=== PATIENT | male | born 1955 | race Caucasian/White ===

== ENCOUNTER 2017-06-03 21:11 | Inpatient (IN) | payer MEDICARE ==
[2017-06-03] MEDS ORDERED: Furosemide 40 MG/4 ML VIAL ONE ×2 (21:32→21:36)
[2017-06-03] MEDS ORDERED: HYDROcodone/Acetaminophen 5/325 mg Tablet PO PRN (22:23)
[2017-06-03] MEDS ORDERED: Acetaminophen 325 MG TAB PO PRN (22:23)
--- NOTE | 2017-06-03 22:23 | PDOC.EVN ---
Event Note - Event Note Event Note: [id number] h&p dictated 1. Acute hypoxic respiratory failure 2. ESRD 3. HTN 4. AOCD Plan: see orders
[2017-06-03] MEDS ORDERED: HumaLOG 300 UNITS/3 ML VIAL SC PRN ×2 (22:26)
[2017-06-03] MEDS ORDERED: Dextrose 50% Abboject 50 ML SYRINGE SLOW IVP PRN (22:26)
[2017-06-03] MEDS ORDERED: Dextrose 5% in Water 1,000 ML IV PRN (22:26)
[2017-06-04] MEDS ORDERED: niCARdipine HCl 25 MG in Sodium Chloride 0.9% 250 ML 240 ML IVPB PRN (00:40)
[2017-06-04] MEDS ORDERED: [UNRECOGNIZED DRUG - OTHER] SSW PRN ×3 (00:44)
[2017-06-04] MEDS ORDERED: ALUMINUM SSW PRN ×6 (00:44→01:16)
[2017-06-04] MEDS ORDERED: LIDOCAINE SSW PRN ×6 (00:44→01:16)
[2017-06-04] MEDS ORDERED: MAGNESIUM HYDROXIDE SSW PRN ×6 (00:44→01:16)
[2017-06-04] MEDS ORDERED: VISCOUS SSW PRN ×6 (00:44→01:16)
[2017-06-04] MEDS ORDERED: [UNRECOGNIZED DRUG - OTHER] SSW PRN ×3 (01:16)
[2017-06-04 06:03] LABS: Anion Gap 12 mmol/L (10-20); BUN (Urea Nitrogen) 14 mg/dL (8.4-25.7); BUN/Creatinine Ratio 4.64; Calc. Creatinine Clearance 0 mL/min (70-130); Calcium 8.7 mg/dL (7.8-10.44); Carbon Dioxide 31 mmol/L (23-31); Chloride 98 mmol/L (98-107); Estimated GFR-MDRD 21
[2017-06-04 06:09] LABS: Phosphorus 1.9 mg/dL (2.3-4.7)
[2017-06-04 06:27] LABS: Anisocytosis SLIGHT = 6-15 cells (100X) (0-5/hpf); Macrocytosis SLIGHT = 6-15 cells (100X) (0-5/hpf); Mean Platelet Volume 8.4 fL (7.4-10.4); Neutrophil 53 % (42-75); Polychromasia SLIGHT = 2-3 cells (100X) (0-2/hpf); White Blood Cell (WBC) Count 2.8 thou/uL (4.8-10.8)
[2017-06-04] MEDS ORDERED: [UNRECOGNIZED DRUG - OTHER] SSW SCH ×3 (07:30)
[2017-06-04] MEDS ORDERED: LIDOCAINE SSW SCH ×3 (07:30)
[2017-06-04] MEDS ORDERED: MAGNESIUM HYDROXIDE SSW SCH ×3 (07:30)
[2017-06-04] MEDS ORDERED: ALUMINUM SSW SCH ×3 (07:30)
[2017-06-04] MEDS ORDERED: VISCOUS SSW SCH ×3 (07:30)
[2017-06-04] MEDS ORDERED: Sevelamer Carbonate 800 MG TAB PO SCH (08:00)
--- NOTE | 2017-06-04 08:09 | HP ---
DATE OF ADMISSION: 06/03/2017 CHIEF COMPLAINT: Difficulty breathing. HISTORY OF PRESENT ILLNESS: Patient is a 62-year-old male with past medical history of ESRD; hypert ension; diabetes mellitus, type 2; anemia of chronic disease, now came to the ER because of the flui d overload. Patient said he did had dialysis done today. Patient finished dialysis earlier this mo rning. Patient says that he started having dyspnea this evening, dyspnea got worse, so patient went to outside ER, in the outside ER, patient was diagnosed having fluid overload, so patient was place d on BiPAP and transferred here. The patient denies any chest pain. Denies any palpitations. Comp lains of chest congestion. Denies any fever, denies any chills. PAST MEDICAL HISTORY: As per HPI. PAST SURGICAL HISTORY: AV fistula placement and recent tonsillar biopsy done. SOCIAL HISTORY: Denies smoking, denies alcohol, denies any drugs. REVIEW OF SYSTEMS: Constitutional: Denies any fever, denies any chills. Eyes: No vision problems . Ears: Denies any hearing loss. Neck: Denies any neck pain. Cardiovascular System: Denies any chest pain. Respiratory System: Positive for dyspnea. Cranial Nerve System: Denies syncope. De nies lightheadedness. Genitourinary: Positive for dialysis. Integumentary: Denies any rash. All other review of systems are reviewed and are negative. PHYSICAL EXAMINATION: CONSTITUTIONAL/VITAL SIGNS: At the time of H and P performed, blood pressure is 167/78, pulse oxime try 97%, heart rate 72. GENERAL APPEARANCE: The patient appears tired. Anterior nares patent. Nose normal. Ears normal. Teeth intact. Tongue is moist. NECK: Supple. No JVD. CARDIOVASCULAR SYSTEM: S1 and S2 present. Regular rate and rhythm. No murmurs, no rubs, no gallop s. RESPIRATORY SYSTEM: Positive for crackles. No wheezing, no rhonchi, on BiPAP, mild tachypnea. GASTROINTESTINAL SYSTEM: Abdomen is soft, nontender, no guarding, no organomegaly, no masses felt. CRANIAL NERVE SYSTEM: Awake, follows commands, strength intact, sensory intact. PSYCHIATRIC: Mood is appropriate at this time. INTEGUMENTARY: No rashes seen. MUSCULOSKELETAL: Positive for AV fistula. LABORATORY DATA: Labs at the time of H and P performed, sodium 136, potassium 4.5, chloride is 99, CO2 of 25, BUN of 27, creatinine of 4.57, CK-MB is 1.1, troponin is 0.075, BNP 12,570. CBC showed w teri count 4.6, hemoglobin 9.2, platelet count is 195. ASSESSMENT AND PLAN: The patient is 62-year-old male. 1. Acute hypoxic respiratory failure. Continue BiPAP. We will monitor respiratory status closely. Plan to admit the patient to ICU. ED physician spoke to the gas derrick operator. We will monitor the p atient closely. 2. Acute fluid overload plus end-stage renal disease. Plan ED physician to notify the special machine stitcher . We will go ahead and do dialysis tonight and we will monitor respiratory status closely. 3. History of hypertension, uncontrolled, continue on nitro drip, we will wean nitro drip slowly. 4. Anemia of chronic disease. Monitor hemoglobin per Nephrology. 5. Diabetes mellitus, type 2. Monitor blood sugars. We will do insulin sliding scale. The case was discussed in detail with the patient.
[2017-06-04 08:44] VITALS: BP 150/63
[2017-06-04] MEDS ORDERED: Carvedilol 25 MG TAB PO SCH (09:00)
[2017-06-04] MEDS ORDERED: Famotidine 20 MG TAB PO SCH ×2 (09:00)
[2017-06-04] MEDS ORDERED: Aspirin 325 MG TAB PO SCH (09:00)
[2017-06-04] MEDS ORDERED: Apixaban 5 MG TAB PO SCH (09:00)
[2017-06-04] MEDS ORDERED: Heparin 5,000 UNITS/ML VIAL SC SCH (09:00)
--- NOTE | 2017-06-04 10:58 | CON ---
DATE OF CONSULTATION: 06/03/2017 REASON FOR CONSULTATION: Pulmonary edema. HISTORY OF PRESENT ILLNESS: A 62-year-old gentleman who after dialysis complaining of shortness of breath and presented to the hospital. Chest x-ray showed cardiomegaly. The patient complains of dyspnea with minimal exertion and chest heaviness. The patient denies headache, numbness, tingling or weakness. PAST MEDICAL HISTORY: Significant for hypertension, anemia, end-stage renal disease, history of AV fistula placement. SOCIAL ECONOMIC HISTORY: No alcohol or drug use. ALLERGIES: Reviewed. REVIEW OF SYSTEMS: Fifteen point review of systems was performed and negative except positives noted above. GENERAL: Weakness-. HEAD: Headache-. NECK: No swelling or lumps. NOSE: No epistaxis or discharge. EYES: No diplopia or pain. RESPIRATORY: Dyspnea-. CARDIOVASCULAR: Chest pain-. GASTROINTESTINAL: Nausea-. /BIAS BINDING FOLDER: Hematuria-. MUSCULOSKELETAL: No joint pain. NEUROPSYCHIATIC SYSTEMS: No suicidal ideation. No ideation. SKIN: Denies any rash or ulcer. CONSTITUTIONAL: No fever or chills. FAMILY HISTORY: Negative for ESRD. ALLERGIES: Reviewed. HOME MEDICATIONS: List reviewed. PHYSICAL EXAMINATION: GENERAL: Patient was awake, alert. VITAL SIGNS: Afebrile, pulse 75, breathing at 16, blood pressure 160/78. HEAD/NECK: Normocephalic, atraumatic. EYES: EOMI. No deformity. EARS: Clear. No ulcers. NOSE: Intact. No lesions. MOUTH: Clear. No discharge. THROAT: Clear. No exudate. LUNGS: Clear. No crackles. CARDIAC: S1, S2. No rub. ABDOMEN: Benign. BS+. GENITALIA/RECTUM: Chappell absent. BACK/EXTREMITIES: Edema 0+ Ulcer-. NEUROLOGICAL: Alert and motor intact. SKIN: Rash- Bruise-. LYMPHATICS: Edema- Ulcer-. LABORATORY DATA: Show potassium is less than 4. Hemoglobin 8.2. X-RAY FINDINGS: Chest x-ray shows pulmonary edema. ASSESSMENT AND RECOMMENDATIONS: 1. End-stage renal disease. Dialysis will be planned with a 3K bath, ultrafiltrate 2:3 Kg. 2. Hypertension, stable. 3. Medications based on GFR are appropriate. 4. Anemia. We will continue Epogen. I would recommend 2000 mL fluid restriction per day. MTDD
--- NOTE | 2017-06-04 11:22 | PRG ---
DATE OF SERVICE: 06/04/2017 SUBJECTIVE: This 62-year-old gentleman being seen for end-stage renal disease. Patient denies any nausea, vomiting or chest pain. The patient tolerated dialysis well. PHYSICAL EXAMINATION: GENERAL: Patient is awake, alert. VITAL SIGNS: Afebrile, pulse 82, breathing at 16, blood pressure 120/80. GENERAL APPEARANCE AND MENTAL STATUS: Fair. HEAD/NECK: Normocephalic. Atraumatic. EYES: EOMI. No deformity. EARS: Clear. No ulcers. NOSE: Intact. No lesions. MOUTH: Clear. No discharge. THROAT: Clear. No exudate. LUNGS: Clear. No crackles. CARDIAC: S1, S2. No rub. ABDOMEN: Benign. BS+. GENITALIA/RECTUM: Chappell absent. BACK/EXTREMITIES: Edema 0+ Ulcer- NEUROLOGICAL: Alert and motor intact. SKIN: Rash- Bruise- LYMPHATICS: Edema- Ulcer- LABORATORY DATA: Show hemoglobin 8.2. ASSESSMENT AND RECOMMENDATIONS: 1. Stage 6 chronic kidney disease. Continue hemodialysis. 2. Hypertension, stable. 3. Anemia, stable. 4. Congestive heart failure, stable.
[2017-06-04 13:05] VITALS: TEMP 98.5
--- NOTE | 2017-06-04 13:59 | DIS ---
DATE OF ADMISSION: 06/03/2017 DATE OF DISCHARGE: 06/04/2017 CONSULTANTS: The patient's consultants on the case where ware finisher and Dr. Rocha. DISCHARGE MEDICATIONS: The patient's discharge medications are the same as admit medications. DISCHARGE DIAGNOSES: 1. Shortness of breath, acute respiratory failure secondary to volume overload, resolved with dialy sis. 2. End-stage renal disease, on hemodialysis. 3. Hypertension, stable. 4. Anemia of chronic disease. Continue Epogen. 5. Diabetes mellitus, stable. BRIEF HOSPITAL COURSE: This is a 62-year-old pleasant gentleman who was apparently in the usual sta te of health, came into the hospital because of difficulty breathing. Please refer to the admitting physician's H and P for further details. The patient was dialyzed this hospital stay, he did much better. He was initially treated with BiPAP; however, admitted to the ICU because of the respirator y failure, but after the dialysis, he felt much better right now, is eating well, breathing on room air, satting well at the time of my examination. PHYSICAL EXAMINATION: VITAL SIGNS: His blood pressure was 150/63, breathing comfortably on room air, pulse of 78 and afeb rile. GENERAL: The patient was lying in bed, in no apparent distress. HEENT: Atraumatic and normocephalic. Pupils equal, round, react to light. Extraocular movements a re intact. Mucous membranes are moist. NECK: Supple. No JVD. CHEST: Breath sounds. There are no rales or rhonchi. HEART: S1, S2. No murmurs or gallops. ABDOMEN: Soft. EXTREMITIES: No cyanosis, clubbing, or edema. Distal pulses present. NEUROLOGIC: Alert, awake, oriented. No cranial deficits. No sensorimotor deficits. The patient right now is medically stable to be discharged from the ware finisher point of view and Dr Marilu Rocha's point of view. He is asked to follow up with Dr. Rocha for hemodialysis and PCP in 1 week. He understands all this. He is asked to come back to the emergency room in case symptoms recur. Total time for this discharge took 35 minutes.
--- NOTE | 2017-06-04 18:42 | CON ---
DATE OF CONSULTATION: 06/04/2017 Mr. Little is a 62-year-old male with end-stage renal disease. He also has head and neck cancer. Zelalem whitmore tells me that his dry weight has not been adjusted down with his weight loss associated with this malignancy and his odynophagia. He is dialyzed to his dry weight, but when he got home, noticed mirella t he was short of breath. He presented with volume overload and required noninvasive ventilation mo st of the night. He was evaluated by me earlier this morning. He is off noninvasive ventilation an d I completed dialysis, said he was 100% better. He is on room air. He has been cleared by Nephrology for discharge, and I evaluated him and to be followed in a dialysi s clinic. PAST MEDICAL HISTORY: 1. Remarkable for anemia of chronic disease. 2. Hypertension. 3. History of vascular access procedures. SOCIAL HISTORY: He is a nonsmoker, nondrinker. ALLERGY: To CODEINE. FAMILY HISTORY: Negative for lung disease at an early age. REVIEW OF SYSTEMS: Otherwise unremarkable. PHYSICAL EXAMINATION: VITAL SIGNS: Heart rate 69, respiratory rate is in the 20s. Blood pressure 150/72 this afternoon. LUNGS: Clear. HEART: Regular rhythm. ABDOMEN: Soft and nontender. EXTREMITIES: Without asymmetry. LABORATORY DATA: White count this morning was 2.8, hemoglobin 8.2, platelets 146. Electrolytes are normal. Creatinine was 3.0. IMPRESSION: 1. End-stage renal disease. 2. Throat cancer. 3. Deconditioning. 4. Volume overload, resolved with dialysis. I would agree with discharge home since he is seen kandice quently in the dialysis clinic.
[2017-06-04] MEDS ORDERED: Atorvastatin Calcium 20 MG TAB PO SCH (21:00)
[2017-06-04] MEDS ORDERED: NIFEdipine XL 30 MG TAB PO SCH (21:00)
== END 2017-06-04 15:24 | disposition home or self-care (01) | DRG 189 ==
LOC: ERS 21:11 → CCU 22:58
PROVIDERS: ADMIT Internal Medicine; ATTEND Internal Medicine
PROC: 5A09357 Assistance with Respiratory Ventilation, Less than 24 Consecutive Hours, Continuous Positive Airway Pressure (ICD-10-PCS; principal; 2017-06-03)
PROC: 5A1D70Z Performance of Urinary Filtration, Intermittent, Less than 6 Hours Per Day (ICD-10-PCS; 2017-06-04)
DX: J96.01 Acute respiratory failure with hypoxia (principal); I13.2 Hypertensive heart and chronic kidney disease with heart failure and with stage 5 chronic kidney disease, or end stage renal disease; N18.6 End stage renal disease; C14.0 Malignant neoplasm of pharynx, unspecified; E87.70 Fluid overload, unspecified; C76.0 Malignant neoplasm of head, face and neck; D63.8 Anemia in other chronic diseases classified elsewhere; E11.9 Type 2 diabetes mellitus without complications; I50.9 Heart failure, unspecified; Z99.2 Dependence on renal dialysis
CPT/HCPCS: 36415; 36416; 77386; 77417; 80053; 80069; 82248; 83615; 83735; 84100; 84550; 85007; 85025; 85027; 87340; 90935; 94660; 94760; 96365; 96366; 96375; A4216; G0257; J1644; J1940; J7050

== ENCOUNTER 2017-06-09 08:55 | Day surgery (SDC) | payer MEDICARE ==
[2017-06-09] MEDS ORDERED: Sodium Chloride 0.9% 20 ML ONE (09:48)
[2017-06-09] MEDS ORDERED: diphenhydrAMINE HCl 25 MG CAP PO SCH (10:00)
[2017-06-09] MEDS ORDERED: Acetaminophen 500 MG TAB PO SCH (10:00)
[2017-06-09 15:14] VITALS: BP 165/77; TEMP 98.2
[2017-06-09 15:27] LABS: Hematocrit 31.9 % (42.0-52.0); Mean Platelet Volume 7.6 fL (7.4-10.4); Red Blood Cell (RBC) Count 3.45 mill/uL (4.70-6.10); White Blood Cell (WBC) Count 4.5 thou/uL (4.8-10.8)
[2017-06-09 15:51] LABS: Anisocytosis SLIGHT = 6-15 cells (100X) (0-5/hpf); Band 4 % (5-11); Neutrophil 76 % (42-75)
== END 2017-06-09 15:14 | disposition home or self-care (01) ==
LOC: ONC/OP 08:55
PROVIDERS: ATTEND Internal Medicine Hematology & Oncology
PROC: 30233N1 Transfusion of Nonautologous Red Blood Cells into Peripheral Vein, Percutaneous Approach (ICD-10-PCS; principal; 2017-06-09)
DX: D64.9 Anemia, unspecified (principal); D69.59 Other secondary thrombocytopenia; E11.22 Type 2 diabetes mellitus with diabetic chronic kidney disease; I12.0 Hypertensive chronic kidney disease with stage 5 chronic kidney disease or end stage renal disease; N18.6 End stage renal disease; F17.200 Nicotine dependence, unspecified, uncomplicated; F12.90 Cannabis use, unspecified, uncomplicated; Z99.2 Dependence on renal dialysis; Z79.84 Long term (current) use of oral hypoglycemic drugs; Z79.01 Long term (current) use of anticoagulants; Z79.899 Other long term (current) drug therapy; Z88.5 Allergy status to narcotic agent; Z98.890 Other specified postprocedural states
CPT/HCPCS: 36415; 36430; 85025; 86850; 86900; 86901; A4216; P9016

== ENCOUNTER 2017-07-22 19:39 | Observation (INO) | payer MEDICARE ==
[2017-07-22] MEDS ORDERED: Nitroglycerin 2% Ointment 1 INCH/1 GM Packet ONE (19:53)
[2017-07-22 21:37] LABS: Troponin I 0.802 ng/mL (< 0.028)
[2017-07-22] MEDS ORDERED: Ondansetron HCl/PF 4 MG/2 ML Vial IVP PRN (22:46)
[2017-07-22] MEDS ORDERED: Ondansetron ODT 4 MG TAB SL PRN (22:46)
[2017-07-22 23:02] VITALS: BMI 17.9
[2017-07-22] MEDS ORDERED: Nitroglycerin 0.4 MG TAB (25 Tab Bottle) SL PRN (23:40)
[2017-07-22] MEDS ORDERED: Bisacodyl 5 MG TAB PO PRN (23:40)
[2017-07-22] MEDS ORDERED: Acetaminophen 325 MG TAB PO PRN (23:40)
[2017-07-22] MEDS ORDERED: Dextrose 50% Abboject 50 ML SYRINGE SLOW IVP PRN (23:58)
[2017-07-22] MEDS ORDERED: HumaLOG 300 UNITS/3 ML VIAL SC PRN (23:58)
[2017-07-22] MEDS ORDERED: Dextrose 5% in Water 1,000 ML IV PRN (23:58)
[2017-07-22 23:59] LABS: Troponin I 0.998 ng/mL (< 0.028)
--- NOTE | 2017-07-23 01:32 | HP ---
PRIMARY CARE PHYSICIAN: Johana Rahman D.O. CHIEF COMPLAINT: Shortness of breath. HISTORY OF PRESENT ILLNESS: Mr. Little is a pleasant 62-year-old gentleman who was seen at [facility] on 07/22/2017. He was hospitalized at this facility early June. During that hospitalization, he had cardiac catheterization and received a bare metal stent to the LAD. He reports that over the last few weeks, he has been having shortness of breath. He reports having a "funny sensation all over the body." He reportedly told the emergency room physician that he had ch est pressure at times. He denies chest pressures when asked about it. He also reports feeling anxio us. He reports that he used his mother's oxygen and the shortness of breath improved. He had dialys is today morning, but reports that the shortness of breath is not related to his dialysis. REVIEW OF SYSTEMS: The following complete review of systems was negative, unless otherwise mentioned in the HPI or below: Constitutional: Weight loss or gain, sense of well-being, ability to conduct usual activities, exerc ise tolerance. Skin/Breast: Rash, itching, changes in hair growth or loss, nail changes, breast lum ps, tenderness, swelling, nipple discharge. Eyes: Vision, double vision, tearing, blind spots, pain . ENT/Mouth: Headaches (location, time of onset, duration, precipitating factors), vertigo, lighthe adedness, injury. Vision, double vision, tearing, blind spots, pain, nose bleeding, colds, obstructio n, discharge, dental difficulties, gingival bleeding, dentures, neck stiffness, pain, tenderness, mas ses in thyroid or other areas. Cardiovascular: Precordial pain, substernal distress, palpitations, syncope, dyspnea on exertion, orthopnea, nocturnal paroxysmal dyspnea, edema, cyanosis, hypertension, heart murmurs, varicosities, phlebitis, claudication. Respiratory: Pain, shortness of breath, whee zing, stridor, cough, hemoptysis, fever or night sweats. Gastrointestinal: Poor appetite, dysphagia , indigestion, abdominal pain, heartburn, eructation, nausea, vomiting, hematemesis, jaundice, consti pation, or diarrhea, abnormal stools (antonio-colored, tarry, bloody, greasy, foul smelling), flatulence , hemorrhoids, recent changes in bowel habits. Genitourinary: Urgency, frequency, dysuria, nocturia , hematuria, polyuria, oliguria, unusual (or change in) color of urine, stones, hesitancy, change in size of stream, dribbling, acute retention or incontinence, libido, potency. Musculoskeletal: Pain, swelling, redness or heat of muscles or joints, limitation, of motion, muscular weakness, atrophy, c ramps. Neurologic/Psychiatric: Convulsions, paralyses, tremor, incoordination, parasthesias, diffic ulties with memory of speech, sensory or motor disturbances, or muscular coordination (ataxia, tremor ), emotional problems, anxiety, depression, previous psychiatric care, unusual perceptions, hallucina tions. Allergy/Immunologic: Skin rash, anemia, bleeding tendency, polydipsia, polyuria, intolerance to heat or cold. PAST MEDICAL HISTORY: Significant for end-stage renal disease on hemodialysis, hypertension, dyslipi demia, diabetes mellitus type 2, chronic hepatitis C, history of marijuana use, chronic systolic hear t failure, coronary artery disease, status post PCI with stents; head and neck cancer, on chemotherap y and radiation therapy; chronic anemia, secondary hyperparathyroidism, and cerebrovascular accident. PAST SURGICAL HISTORY: Significant for a left finger reattachment after injury, right shoulder surge ry and dialysis access fistula to left forearm. PAST PSYCHIATRIC HISTORY: Significant for anxiety and depression. SOCIAL HISTORY: The patient reports that he quit smoking 3 months ago. He reports occasional mariju nishant use. He denies alcohol use. FAMILY HISTORY: Significant for diabetes mellitus and hypertension. ALLERGIES: CODEINE. CURRENT MEDICATIONS: Include apixaban 5 mg 2 times a day, aspirin 81 mg daily, Lipitor 80 mg at bedt bob, Coreg 12.5 mg 2 times a day, Plavix 75 mg daily, glipizide 5 mg daily, [place] p.r.n., losartan 25 mg daily, Renvela 2400 mg 3 times a day. PHYSICAL EXAMINATION: GENERAL: Mr. Little is awake and alert, not in acute distress. VITAL SIGNS: Blood pressure is 172/84, pulse is 77. His breathing at rate of 18, and saturating 97% on room air. He is afebrile. EYES: No scleral icterus. No conjunctival pallor. ENT: Moist mucosal membranes, no oropharyngeal erythema or exudates. NECK: Supple, nontender, normal range of movement, trachea is midline. RESPIRATORY: Accessory muscles of breathing are not active. Chest wall movements are symmetric bila terally. LUNGS: Clear to auscultation without wheeze, rhonchi or crepitations. CARDIOVASCULAR: S1 and S2 are heard, regular. LUNGS: Peripheral pulses palpable. No carotid bruit, no pericardial rub. ABDOMEN: Soft, nontender, bowel sounds heard, no hepatomegaly, no splenomegaly. NEUROLOGIC: Cranial nerves II-XII are intact. Deep tendon reflexes are 2+. MUSCULOSKELETAL: Power is 5/5 in all 4 extremities. Normal range of movement at all major extremity joints. SKIN: No rashes or subcutaneous nodules. PSYCHIATRIC: Normal mood, normal affect, patient is oriented to person, place, and time. LABORATORY DATA: Mr. Little's labs and investigations were reviewed. I reviewed his electrocardiogr am, which shows normal sinus rhythm, no ST changes to suggest an acute coronary syndrome. I also rev iewed his chest x-ray, which does not show any pulmonary infiltrates. Laboratory investigations show decreased white count of 4400, normocytic anemia with hemoglobin of 9.5, last known hemoglobin 11.1 on 07/06/2017, normal platelet count. INR 1.3, normal sodium, normal potassium, elevated creatinine of 4.91, elevated troponin I of 1.192, troponin was 7.514 on July 03, 2017, normal AST, normal ALT , normal alkaline phosphatase, normal total bilirubin. ASSESSMENT AND PLAN: Mr. Little is a pleasant 62-year-old gentleman who was seen at [facility] on 07/22/2017. His problem list includes: 1. Shortness of breath: Etiology unclear. Could be related to atypical presentation of acute coron nahum syndrome. I will admit patient for traffic monitor specialist and repeat cardiac enzymes. We will consul t Cardiology Service for their opinion. Clinically, he does not appear to be in heart failure. I wi ll check his BNP level. We will continue his home medications, but hold off on Eliquis at this time in case he needs to go for cardiac catheterization or other procedures. 2. End-stage renal disease on dialysis. Consult Nephrology for maintenance hemodialysis. 3. Anemia: His hemoglobin dropped from 11.1 on July 06 to 9.5 today. However, his baseline hemo globin appears to be lower in May. He denies any bleeding. We will repeat hemoglobin check. 4. Hypertension: Continue home medications, monitor vital signs and titrate antihypertensives as ne eded. 5. Dyslipidemia: Continue statin. 6. Diabetes mellitus type 2. Resume home medications, start insulin sliding scale and Accu-Cheks. Many thanks for allowing me to participate in your patient's care. Please feel free to contact me wi th any questions or concerns. LEVEL OF RISK: High. LEVEL OF COMPLEXITY: High.
[2017-07-23] MEDS ORDERED: Nitroglycerin 2% Ointment 1 INCH/1 GM Packet TOP SCH (06:00)
[2017-07-23 06:04] LABS: Anion Gap 16 mmol/L (10-20); BUN (Urea Nitrogen) 48 mg/dL (8.4-25.7); Calc. Creatinine Clearance 11 mL/min (70-130); Calcium 8.9 mg/dL (7.8-10.44); Carbon Dioxide 21 mmol/L (23-31); Chloride 103 mmol/L (98-107); Estimated GFR-MDRD 10
[2017-07-23 06:16] LABS: Anisocytosis MODERATE=16-30 cells (100X) (0-5/hpf); Hematocrit 30.6 % (42.0-52.0); Mean Platelet Volume 7.9 fL (7.4-10.4); Neutrophil 51 % (42-75); Red Blood Cell (RBC) Count 3.33 mill/uL (4.70-6.10); White Blood Cell (WBC) Count 3.8 thou/uL (4.8-10.8)
[2017-07-23] MEDS: Losartan Potassium 25 MG TAB PO SCH (07:54)
[2017-07-23] MEDS: Carvedilol 6.25 MG TAB PO SCH ×2 (07:54→17:36)
[2017-07-23] MEDS: glipiZIDE 5 MG TAB PO SCH (07:55)
[2017-07-23] MEDS: Sevelamer Carbonate 800 MG TAB PO SCH ×3 (07:55→17:37)
[2017-07-23] MEDS ORDERED: Clopidogrel Bisulfate 75 MG TAB PO SCH (09:00)
[2017-07-23] MEDS ORDERED: Aspirin 325 MG TAB PO SCH (09:00)
[2017-07-23] MEDS ORDERED: Non-Formulary Item 1 EACH (Clopidogrel Bisulfate [Clopidogrel] 75 MG) PO SCH (09:00)
--- NOTE | 2017-07-23 09:38 | PDOC.PN ---
- Subjective Encounter Start Date: 07/23/17 Encounter Start Time: 09:36 Subjective: c/o several anxiety episodes.no chest pain. gets SOb for few seconds -: no orthopnea/PND/leg edema - Objective Resuscitation Status: Resuscitation Status FULL:Full Resuscitation Vital Signs & Weight: Vital Signs (12 hours) Temp Pulse Resp BP BP BP Pulse Ox 07/23/17 07:33 98.4 F 85 14 140/81 94 L 07/23/17 05:06 98.5 F 83 16 179/93 H 97 07/23/17 01:13 81 158/79 H 07/22/17 23:40 97 07/22/17 22:39 98.1 F 77 18 172/84 H 97 Weight Weight 125 lb 4.8 oz I&O: 07/22/17 07/23/17 07/24/17 06:59 06:59 06:59 Intake Total 480 Balance 480 Result Diagrams: 07/23/17 05:09 07/23/17 05:09 Additional Labs: Accuchecks 07/23/17 07/23/17 07/23/17 05:51 05:06 01:12 POC Glucose 127 H 55 L* 161 H Laboratory Tests 07/03/17 07/03/17 07/03/17 06:32 08:18 11:17 Troponin I 6.292 H* B-Natriuretic Peptide 59151.6 H Greater than 4900.0 H 07/03/17 07/22/17 07/22/17 14:05 17:55 20:34 Troponin I 7.514 H* 1.192 H* 0.802 H* B-Natriuretic Peptide 07/22/17 07/22/17 20:34 23:18 Troponin I 0.998 H* B-Natriuretic Peptide 3890.9 H Radiology Reviewed by me: Yes (CXR- no edema) Phys Exam - Physical Examination Constitutional: NAD anxious looking.cachectic HEENT: PERRLA, moist MMs, sclera anicteric, oral pharynx no lesions Neck: no nodes, no JVD, supple, full ROM Respiratory: no wheezing, no rales, no rhonchi, clear to auscultation bilateral Cardiovascular: RRR, no significant murmur Gastrointestinal: soft, non-tender, no distention, positive bowel sounds Musculoskeletal: no edema, pulses present Neurological: non-focal, normal sensation, moves all 4 limbs Psychiatric: normal affect, A&O x 3 Skin: no rash Dx/Plan (1) Dyspnea Code(s): R06.00 - DYSPNEA, UNSPECIFIED Status: Acute Comment: Likley anxiety (2) Hepatitis C Code(s): B19.20 - UNSPECIFIED VIRAL HEPATITIS C WITHOUT HEPATIC COMA Status: Chronic (3) Severe protein-calorie malnutrition Code(s): E43 - UNSPECIFIED SEVERE PROTEIN-CALORIE MALNUTRITION Status: Chronic (4) Anemia of renal disease Code(s): D63.1 - ANEMIA IN CHRONIC KIDNEY DISEASE Status: Chronic (5) CAD (coronary artery disease) Code(s): I25.10 - ATHSCL HEART DISEASE OF [place] CORONARY ARTERY W/O ANG PCTRS Status: Chronic Qualifiers: (6) Chronic anticoagulation Code(s): Z79.01 - MECHANICAL MAINTENANCE SUPERVISOR (CURRENT) USE OF ANTICOAGULANTS Status: Chronic Comment: goran on hold for now (7) Diabetes type 2, controlled Code(s): E11.9 - TYPE 2 DIABETES MELLITUS WITHOUT COMPLICATIONS Status: Chronic Qualifiers: (8) ESRD (end stage renal disease) on dialysis Code(s): N18.6 - END STAGE RENAL DISEASE; Z99.2 - DEPENDENCE ON RENAL DIALYSIS Status: Chronic (9) HTN (hypertension) Code(s): I10 - ESSENTIAL (PRIMARY) HYPERTENSION Status: Chronic Qualifiers: (10) Secondary hyperparathyroidism of renal origin Code(s): N25.81 - SECONDARY HYPERPARATHYROIDISM OF RENAL ORIGIN Status: Chronic (11) Throat cancer Code(s): C14.0 - MALIGNANT NEOPLASM OF PHARYNX, UNSPECIFIED Status: Chronic Comment: s/p ChemoRx and XRT - Plan PT/OT, respiratory therapy, incentive spirometry, out of bed/ambulate, DVT proph w/SCDs Dyspnea likley anxiety attack.pt reports that he has no meds for same -: less likley to be cardiac. Tropoinin still trending down from 2 weeks ago -: appears euvolemic.cardiology recs requested.cont meds -: HD per nephrology. -: Add Ensure Enlive. * .Pt will be referred to GI an an OP for Chronic hep C. * pen xanax .pt advised about the possibilty of toxicity given h/o hepatitis. * Cont OP f/u w Oncology for Head/Neck CA. is s/p chemo/radiation * am labs, if still here Review of Systems - Review of Systems Constitutional: negative: Fever, Chills, Sweats, Weakness, Malaise, Other ENT: negative: Ear Pain, Ear Discharge, Nose Pain, Nose Discharge, Nose Congestion, Mouth Pain, Mouth Swelling, Throat Pain, Throat Swelling, Other Respiratory: negative: Cough, Dry, Shortness of Breath, Hemoptysis, SOB with Excertion, Pleuritic Pain, Sputum, Wheezing Cardiovascular: negative: Chest Pain, Palpitations, Orthopnea, Paroxysmal Noc. Dyspnea, Edema, Light Headedness, Other Gastrointestinal: negative: Nausea, Vomiting, Abdominal Pain, Diarrhea, Constipation, Melena, Hematochezia, Other Genitourinary: negative: Dysuria, Frequency, Incontinence, Hematuria, Retention , Other Musculoskeletal: negative: Neck Pain, Shoulder Pain, Arm Pain, Back Pain, Hand Pain, Leg Pain, Foot Pain, Other Neurological: negative: Weakness, Numbness, Incoordination, Change in Speech, Confusion, Seizures, Other Other: anxiety - Medications/Allergies Allergies/Adverse Reactions: Allergies Allergy/AdvReac Type Severity Reaction Status Date / Time codeine Allergy Intermediate MADE PT Verified 06/04/17 00:01 VERY SICK TO STOMACH, NAUSEA Medications: Current Medications Acetaminophen (Tylenol) 650 mg PO Q4H PRN PRN Reason: Headache/Fever or Pain Aspirin (Aspirin Chewable) 81 mg PO DAILY [facility] Last Admin: 07/23/17 07:55 Dose: 81 mg Atorvastatin Calcium (Lipitor) 80 mg PO [facility] Bisacodyl (Dulcolax) 10 mg PO DAILYPRN PRN PRN Reason: Constipation Carvedilol (Coreg) 12.5 mg PO BID-[facility] Last Admin: 07/23/17 07:54 Dose: 12.5 mg Clopidogrel Bisulfate (Plavix) 75 mg PO DAILY [facility] Last Admin: 07/23/17 07:54 Dose: 75 mg Dextrose/Water (Dextrose 50%) 25 gm SLOW IVP PRN PRN PRN Reason: Hypoglycemia Glipizide (Glucotrol) 5 mg PO QAM-[facility] Last Admin: 07/23/17 07:55 Dose: 5 mg Glucagon (Glucagon) 1 mg IM PRN PRN PRN Reason: Hypoglycemia Dextrose/Water (D5w) 1,000 mls @ 0 mls/hr IV .Q0M PRN; As Directed PRN Reason: Hypoglycemia Insulin Human Lispro (Humalog) 0 units SC .MILD SLIDING SCALE PRN PRN Reason: Mild Correctional Scale Losartan Potassium (Cozaar) 25 mg PO DAILY [facility] Last Admin: 07/23/17 07:54 Dose: 25 mg Nitroglycerin (Nitro-Bid 2% Ointment) 1 inch TOP Q8HR [place] Stop: 07/23/17 10:00 Last Admin: 07/23/17 05:03 Dose: 1 inch Nitroglycerin (Nitrostat) 0.4 mg SL Q5MIN PRN PRN Reason: Chest Pain Ondansetron HCl (Zofran) 4 mg IVP Q6H PRN PRN Reason: Nausea/Vomiting Stop: 07/23/17 10:00 Ondansetron HCl (Zofran Odt) 4 mg SL Q6H PRN PRN Reason: Nausea/Vomiting Stop: 07/23/17 10:00 Sevelamer Carbonate (Renvela) 2,400 mg PO TID-[facility] Last Admin: 07/23/17 07:55 Dose: 2,400 mg Sodium Chloride (Flush - Normal Saline) 10 ml IVF PRN PRN PRN Reason: Saline Flush Stop: 07/23/17 10:00
--- NOTE | 2017-07-23 13:14 | CON ---
DATE OF CONSULTATION: 07/23/2017 TYPE OF CONSULTATION: Cardiology Consultation. REASON FOR CONSULTATION: Elevated troponins. HISTORY OF PRESENT ILLNESS: Mr. Little is a 62-year-old white gentleman who comes to the hospital fo r a funny feeling. He was found to have a low blood sugar, felt much better after sugars were back t o normal range. This morning he felt the funny feeling again, his sugars were 42. He felt better af ter a few hours once his blood sugar came back to normal. Cardiology has been consulted as during hi s hospitalization troponins were checked and they were a little bit elevated. He has a history of co ronary artery disease with moderate disease mostly, last time he was here he had a troponin bump up t o 7, so a repeat catheterization was done and his 50% mid LAD lesion looked a little bit tighter and we were unable to cross an IVUS catheter through it, which would suggest that he has severe stenosis there, so this was stented with a bare metal stent successfully. He has not missed a dose of his brando pidogrel and denies any chest pain, tightness, or pressure. No shortness of breath. PAST MEDICAL HISTORY: 1. End-stage renal disease, on hemodialysis Tuesday, Tuesday, Tuesday. 2. Hypertension. 3. Hyperlipidemia. 4. Type 2 diabetes. 5. Chronic hepatitis C. 6. Marijuana use in the past. 7. Systolic dysfunction, chronic in the past. 8. Coronary artery disease. 9. Status post bare metal stent to the LAD just 3 weeks ago. 10. Head and neck malignancy with chemotherapy and radiation. 11. Chronic anemia. 12. Hyperparathyroidism. 13. CVA in the past. PAST SURGICAL HISTORY: 1. Left finger reattachment after injury. 2. Right shoulder surgery. 3. Dialysis access fistula, left arm. SOCIAL HISTORY: Quit smoking 3 months ago. No Marijuana, no drug use, no alcohol use. FAMILY HISTORY: Diabetes and hypertension, otherwise noncontributory. OUTPATIENT MEDICATIONS: Include, 1. Eliquis 5 mg p.o. b.i.d. 2. Aspirin 81 daily, which he will stop in 1 week. 3. Lipitor 80 mg at bedtime. 4. Coreg 12.5 mg b.i.d. 5. Plavix 75 mg a day. 6. Glipizide 5 mg a day. 7. [place] p.r.n. 8. Losartan 25 mg a day. 9. Renvela t.i.d. ALLERGIES: CODEINE. REVIEW OF SYSTEMS: Twelve-point review of systems was done and is all negative unless stated in the history of present illness. PHYSICAL EXAMINATION: VITAL SIGNS: Temperature 98.2, pulse 82, respiration rate 16, satting 97% on room air, blood pressur e 106/72. GENERAL: Awake, alert, oriented x3, in no distress. HEENT: Normocephalic, atraumatic. NECK: Supple. LUNGS: Clear. CARDIOVASCULAR: S1, S2, no S3, S4, no murmurs or rubs. ABDOMEN: Soft. Positive bowel sounds. EXTREMITIES: No edema. SKIN: Warm and dry. LABORATORY WORK: Reviewed. Troponin went from 0.8 to 0.9. Glucose has been low on admission at 50 and it got better and then back down to 48 this morning, thus correlates with his weird sensation mirella t he described. CBC: White count of 3.8, hemoglobin 9.6, platelet count of 155. EKG was reviewed. ASSESSMENT AND PLAN: 1. Hypoglycemia: Most likely this is the source of his symptoms. He denies any chest pain to me wh atsoever. 2. Elevated troponins: Most likely related to his end-stage renal disease. He has not stopped his Eliquis, aspirin, or clopidogrel. He denies any symptoms related to what would be an acute coronary syndrome, his EKG is unchanged. Most likely the mild troponin leak is related to his condition end-s tage renal disease. He has got a chronic troponin leak. I cannot explain his low glucose from any c ardiac issue. 3. Coronary artery disease: Stable most likely. We will get an echocardiogram to assess left ventri cular function and make sure that is unchanged, but I expect his stent to be wide open as he has not had any symptoms. Thank you for letting us participate in the care of patient. We will follow. If his echocardiogram is unchanged, he should be able to be discharged home at any time from a cardiac perspective.
--- NOTE | 2017-07-23 16:27 | CON ---
DATE OF CONSULTATION: 07/23/2017 TYPE OF CONSULTATION: Nephrology Consultation. REASON FOR CONSULTATION: Stage 6 chronic kidney disease, on maintenance hemodialysis. HISTORY OF PRESENT ILLNESS: This is a 62-year-old gentleman who presented to the hospital for shortn ess of breath. No chest pain. Denies any nausea or vomiting. PAST MEDICAL HISTORY: Significant for end-stage renal disease, Parkinson's, pneumonia, gout, tunnele d dialysis catheter. FAMILY HISTORY: Negative for ESRD. SOCIAL HISTORY: No alcohol or drug use. ALLERGIES: Reviewed. HOME MEDICATIONS: Reviewed. REVIEW OF SYSTEMS: Fifteen-point review of systems was performed and negative except positives noted above. General: Weakness-. Head: Headache-. Neck: No swelling or lumps. Nose: No epistaxis o r discharge. Eyes: No diplopia or pain. Respiratory: Dyspnea-. Cardiovascular: Chest pain-. Ga strointestinal: Nausea-. /MFTS: Hematuria-. Musculoskeletal: No joint pain. Neuropsychiatic Sy stems: No suicidal ideation. No ideation. SKIN: Denies any rash or ulcer. Constitutional: No fev er or chills. PHYSICAL EXAMINATION: GENERAL: Patient is awake, alert. VITAL SIGNS: Afebrile, pulse 82, breathing at 16, blood pressure 106/72. Room air saturation was 97 %. GENERAL APPEARANCE AND MENTAL STATUS: Fair. HEAD/NECK: Normocephalic. Atraumatic. EYES: EOMI. No deformity. EARS: Clear. No ulcers. NOSE: Intact. No lesions. MOUTH: Clear. No discharge. THROAT: Clear. No exudate. LUNGS: Clear. No crackles. CARDIAC: S1, S2. No rub. ABDOMEN: Benign. BS+ GENITALIA/RECTUM: Chappell absent. BACK/EXTREMITIES: Edema 0+ Ulcer- NEUROLOGICAL: Alert and motor intact. SKIN: Rash- Bruise- LYMPHATICS: Edema- Ulcer- LABORATORY: Hemoglobin 9.6, potassium 4.1. ASSESSMENT AND PLAN: 1. Stage 6 chronic kidney disease. Continue hemodialysis. 2. Hypertension, stable. 3. Anemia, stable. 4. Medications based on glomerular filtration rate are appropriate.
[2017-07-23] MEDS: Atorvastatin Calcium 40 MG TAB PO SCH (20:15)
[2017-07-23] MEDS ORDERED: Non-Formulary Item 1 EACH (Atorvastatin Calcium [Atorvastatin Calcium] 80 MG) PO SCH (21:00)
[2017-07-24 06:11] LABS: Hematocrit 27.3 % (42.0-52.0)
[2017-07-24] MEDS: Sevelamer Carbonate 800 MG TAB PO SCH ×3 (08:47→17:02)
[2017-07-24] MEDS: glipiZIDE 5 MG TAB PO SCH (08:47)
[2017-07-24] MEDS: Losartan Potassium 25 MG TAB PO SCH (08:47)
[2017-07-24] MEDS: Carvedilol 6.25 MG TAB PO SCH ×2 (08:47→17:03)
--- NOTE | 2017-07-24 11:43 | PDOC.PN ---
- Subjective Encounter Start Date: 07/24/17 Encounter Start Time: 11:41 Subjective: c/o having black stools last evening"as black as my black socks' -: no stools since then.no AP.no vomiting/nausea - Objective Resuscitation Status: Resuscitation Status FULL:Full Resuscitation MAR Reviewed: Yes Vital Signs & Weight: Vital Signs (12 hours) Temp Pulse Resp BP BP Pulse Ox 07/24/17 08:47 174/87 H 07/24/17 08:10 98.1 F 90 16 07/24/17 07:23 98.1 F 90 16 176/92 H 98 07/24/17 03:06 98.2 F 82 16 178/92 H 99 07/23/17 23:42 98.3 F 84 18 168/88 H 98 Weight Admit Weight 125 lb Weight 130 lb I&O: 07/23/17 07/24/17 07/25/17 06:59 06:59 06:59 Intake Total 480 1240 Output Total 525 200 Balance 480 715 -200 Result Diagrams: 07/24/17 05:44 07/23/17 05:09 Additional Labs: Accuchecks 07/24/17 07/24/17 07/23/17 10:49 05:09 20:19 POC Glucose 156 H 84 117 H 07/23/17 17:25 POC Glucose 144 H Laboratory Tests 07/23/17 07/24/17 05:09 05:44 Hgb 9.6 L 8.8 L Phys Exam - Physical Examination Constitutional: NAD HEENT: PERRLA, moist MMs, sclera anicteric, oral pharynx no lesions Neck: no nodes, no JVD, supple, full ROM Respiratory: no wheezing, no rales, no rhonchi, clear to auscultation bilateral Cardiovascular: RRR, no significant murmur Gastrointestinal: soft, non-tender, no distention, positive bowel sounds Musculoskeletal: no edema, pulses present Neurological: non-focal, normal sensation, moves all 4 limbs Psychiatric: normal affect, A&O x 3 Skin: no rash Dx/Plan (1) Melena Code(s): K92.1 - MELENA Status: Acute (2) Dyspnea Code(s): R06.00 - DYSPNEA, UNSPECIFIED Status: Resolved Comment: Likley anxiety (3) Hepatitis C Code(s): B19.20 - UNSPECIFIED VIRAL HEPATITIS C WITHOUT HEPATIC COMA Status: Chronic (4) Severe protein-calorie malnutrition Code(s): E43 - UNSPECIFIED SEVERE PROTEIN-CALORIE MALNUTRITION Status: Chronic (5) Anemia of renal disease Code(s): D63.1 - ANEMIA IN CHRONIC KIDNEY DISEASE Status: Chronic (6) CAD (coronary artery disease) Code(s): I25.10 - ATHSCL HEART DISEASE OF [place] CORONARY ARTERY W/O ANG PCTRS Status: Chronic Qualifiers: (7) Chronic anticoagulation Code(s): Z79.01 - [place] (CURRENT) USE OF ANTICOAGULANTS Status: Chronic Comment: eliquis on hold for now (8) Diabetes type 2, controlled Code(s): E11.9 - TYPE 2 DIABETES MELLITUS WITHOUT COMPLICATIONS Status: Chronic Qualifiers: (9) ESRD (end stage renal disease) on dialysis Code(s): N18.6 - END STAGE RENAL DISEASE; Z99.2 - DEPENDENCE ON RENAL DIALYSIS Status: Chronic (10) HTN (hypertension) Code(s): I10 - ESSENTIAL (PRIMARY) HYPERTENSION Status: Chronic Qualifiers: (11) Secondary hyperparathyroidism of renal origin Code(s): N25.81 - SECONDARY HYPERPARATHYROIDISM OF RENAL ORIGIN Status: Chronic (12) Throat cancer Code(s): C14.0 - MALIGNANT NEOPLASM OF PHARYNX, UNSPECIFIED Status: Chronic Comment: s/p ChemoRx and XRT - Plan DVT proph w/SCDs cont to hold ASA,palvix and eliquis. add PPI.will request GI consultation. -: H/h w slight drop. monitor.Check FOBT. -: not stable for DC yet. will work up for active GI bleed. -: cont rest of cardiac meds. cardiology recs requested * . Review of Systems - Review of Systems Constitutional: Malaise. negative: Fever, Chills, Sweats, Weakness, Other Respiratory: negative: Cough, Dry, Shortness of Breath, Hemoptysis, SOB with Excertion, Pleuritic Pain, Sputum, Wheezing Cardiovascular: negative: Chest Pain, Palpitations, Orthopnea, Paroxysmal Noc. Dyspnea, Edema, Light Headedness, Other Gastrointestinal: Melena. negative: Nausea, Vomiting, Abdominal Pain, Diarrhea , Constipation, Hematochezia, Other Genitourinary: negative: Dysuria, Frequency, Incontinence, Hematuria, Retention , Other Musculoskeletal: negative: Neck Pain, Shoulder Pain, Arm Pain, Back Pain, Hand Pain, Leg Pain, Foot Pain, Other Neurological: negative: Weakness, Numbness, Incoordination, Change in Speech, Confusion, Seizures, Other - Medications/Allergies Allergies/Adverse Reactions: Allergies Allergy/AdvReac Type Severity Reaction Status Date / Time codeine Allergy Intermediate MADE PT Verified 06/04/17 00:01 VERY SICK TO STOMACH, NAUSEA Medications: Current Medications Acetaminophen (Tylenol) 650 mg PO Q4H PRN PRN Reason: Headache/Fever or Pain Atorvastatin Calcium (Lipitor) 80 mg PO [facility] Last Admin: 07/23/17 20:15 Dose: 80 mg Bisacodyl (Dulcolax) 10 mg PO DAILYPRN PRN PRN Reason: Constipation Carvedilol (Coreg) 12.5 mg PO BID-[facility] Last Admin: 07/24/17 08:47 Dose: 12.5 mg Dextrose/Water (Dextrose 50%) 25 gm SLOW IVP PRN PRN PRN Reason: Hypoglycemia Glipizide (Glucotrol) 5 mg PO QAM-[facility] Last Admin: 07/24/17 08:47 Dose: 5 mg Glucagon (Glucagon) 1 mg IM PRN PRN PRN Reason: Hypoglycemia Dextrose/Water (D5w) 1,000 mls @ 0 mls/hr IV .Q0M PRN; As Directed PRN Reason: Hypoglycemia Insulin Human Lispro (Humalog) 0 units SC .MILD SLIDING SCALE PRN PRN Reason: Mild Correctional Scale Losartan Potassium (Cozaar) 25 mg PO DAILY [facility] Last Admin: 07/24/17 08:47 Dose: 25 mg Nitroglycerin (Nitrostat) 0.4 mg SL Q5MIN PRN PRN Reason: Chest Pain Pantoprazole Sodium (Protonix) 40 mg PO DAILY [facility] Last Admin: 07/24/17 08:47 Dose: 40 mg Sevelamer Carbonate (Renvela) 2,400 mg PO TID-[facility] Last Admin: 07/24/17 08:47 Dose: 2,400 mg
--- NOTE | 2017-07-24 14:02 | PRG ---
DATE OF SERVICE: 07/24/2017 SUBJECTIVE: This is a 62-year-old gentleman being seen for end-stage renal disease. Patient denies any nausea, vomiting or chest pain. PHYSICAL EXAMINATION: GENERAL: Patient is awake, alert. VITAL SIGNS: Afebrile, pulse 90, breathing at 16, blood pressure 178/92. GENERAL APPEARANCE AND MENTAL STATUS: Fair. HEAD/NECK: Normocephalic. Atraumatic. EYES: EOMI. No deformity. EARS: Clear. No ulcers. NOSE: Intact. No lesions. MOUTH: Clear. No discharge. THROAT: Clear. No exudate. LUNGS: Clear. No crackles. CARDIAC: S1, S2. No rub. ABDOMEN: Benign. BS+. GENITALIA/RECTUM: Chappell absent. BACK/EXTREMITIES: Edema 0+ Ulcer-. NEUROLOGICAL: Alert and motor intact. SKIN: Rash- Bruise-. LYMPHATICS: Edema- Ulcer-. LABORATORY DATA: Hemoglobin 8.8, potassium . ASSESSMENT AND RECOMMENDATIONS: 1. Stage 6 chronic kidney disease. Continue hemodialysis. 2. Hypertension, stable. 3. Anemia, stable. 4. Medications based on glomerular filtration rate are appropriate.
[2017-07-24] MEDS ORDERED: Temazepam 15 MG CAP PO PRN (14:58)
--- NOTE | 2017-07-24 15:39 | PDOC.CTH ---
Cardiology Progress Note - Subjective He denies any chest pain, tightness, pressure, SOB. He had a black stool overnight and his Hgb dropped a few points. - Objective Vital Signs Temp Pulse Resp BP BP Pulse Ox 07/24/17 12:01 97.7 F 80 18 178/92 H 97 07/24/17 08:47 174/87 H 07/24/17 08:10 98.1 F 90 16 07/24/17 07:23 98.1 F 90 16 176/92 H 98 Admit Weight 125 lb Weight 130 lb 07/23/17 07/24/17 07/25/17 06:59 06:59 06:59 Intake Total 480 1240 Output Total 525 500 Balance 480 715 -500 - Physical Examination General/Neuro: alert & oriented x3, NAD Neck: no JVD present Lungs: unlabored respirations Heart: RRR Abdomen: NT/ND Extremities: other: (no edema) - Telemetry Telemetry Rhythm: NSR - Labs Result Diagrams: 07/24/17 05:44 07/23/17 05:09 Troponin/CKMB Troponin I 0.998 ng/mL (< 0.028) H* 07/22/17 23:18 - Assessment/Plan 1. Hypoglycemia 2. Possible UGI bleed. 3. Melena 4. Recent BMS to LAD 3 weeks ago PLAN: - GI evaluation for possible scope. - Hold all antiplatelets and all anticoagulants for now.
--- NOTE | 2017-07-24 16:06 | CON ---
GI INPATIENT CONSULTATION NOTE DATE OF CONSULTATION: 07/24/2017 REQUESTING PHYSICIAN: Dr. Cross. REASON FOR CONSULTATION: Melena. HISTORY OF PRESENT ILLNESS: Chris Little is a 62-year-old man previously seen by my GI colleague, Young Faustin. He has a history of hepatitis C genotype 1 which is untreated, but no history of c irrhosis. He has a significant history of coronary artery disease with bare metal stent placed in [place] earlier this month. He has chronic kidney disease. 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 I met him back in 09/2015 when he was in the hospital with significant anemia, hemoglobin 5 at that time. I perfor med EGD and colonoscopy on 10/04/2015. The EGD showed erosive gastritis and a 1 cm clean based antra l ulcer. Biopsies were negative for H. pylori. Colonoscopy showed 5 tiny colon polyps, which were a ll removed with a 3-year repeat colonoscopy recommended. The patient is continued on Eliquis, aspirin, and Plavix. He does not have any chronic gastrointesti nal symptoms except for occasional indigestion. He has not remained on any proton pump inhibitor. H e denies any NSAID use. He was admitted to the hospital 2 days ago with symptomatic hypoglycemia. T roponin was elevated, but this is thought to just be down-trending from his recent event, not a new e vent. His echocardiogram appears no worse with ejection fraction of 45-50%. He is about to be disch arged, but then he reports that last night he had a single bowel movement, which was jet black in col or. This is unusual for him. There has been no bright red blood per rectum. No abdominal pain. He has not had any further bowel movements today. Hemoglobin is 8.8 down from 9.6 on admission, it was 11.1 in June. His Eliquis has been held for the past couple of days. He remains on aspirin and Plavix. He was put on Protonix 40 mg p.o. upon admission. REVIEW OF SYSTEMS: Full review of systems including constitutional, head, eyes, ears, nose, throat, GI, , cardiovascular, respiratory, musculoskeletal, and neurologic systems is negative except as no sapna in the HPI. PAST MEDICAL HISTORY: HCV genotype 1, untreated chronic kidney disease on dialysis, hypertension, di abetes, CHF with ejection fraction of 45-50%, CVA, colon polyps in 2007 and 09/2015, peptic ulcer dis ease in 09/2015, head and neck cancer, status post radiation and chemotherapy, bare metal stent place ment to the LAD in 06/2017. MEDICATIONS: Eliquis twice daily, aspirin 81 mg daily, Plavix 75 mg daily, Lipitor, Coreg, glipizide , [place] p.r.n., losartan, Renvela. ALLERGIES: CODEINE. FAMILY HISTORY: Significant for diabetes and hypertension. SOCIAL HISTORY: He quit smoking 3 months ago. Occasional marijuana use. No alcohol abuse. PHYSICAL EXAMINATION: VITAL SIGNS: Temperature 98.1, blood pressure 174/87, 98% oxygen saturation on room air, pulse 90. GENERAL: A 62-year-old man lying in bed, comfortably in no distress. SKIN: No jaundice, no rashes were palpable. EYES: No scleral icterus. Extraocular movements intact. ENT: Mucous membranes moist, no oral lesions. There are some post-radiation changes to the right si de of the neck. He is still able to open his mouth pretty wide. LYMPH: No submandibular or supraclavicular lymphadenopathy. THYROID: Nontender to palpation. HEART: Regular rate and rhythm. LUNGS: Clear to auscultation bilaterally. ABDOMEN: Bowel sounds present, soft and nontender to palpation throughout. EXTREMITIES: No peripheral edema. VESSELS: Radial pulses 2+ bilaterally. NEUROLOGICAL: Cranial nerves II-XII intact bilaterally. No focal deficits. LABORATORY STUDIES: WBC 3.8, hemoglobin 8.8, platelets 155. BUN 48, creatinine 5.72, sodium 136, po tassium 4.1, troponin 0.998. BNP 3890. ASSESSMENT AND PLAN: 1. Melena. 2. Acute on chronic anemia. 3. History of peptic ulcer disease. 4. Coronary artery disease on aspirin, Plavix, and Eliquis. His Eliquis has been held in the past c ouple of days. He had a single melenic stool and hemoglobin has declined a bit since earlier this mo nth. This is in the context of known peptic ulcer disease, not on any current acid suppressive thera py. I suspect he continues to have some gastritis or possible recurrent peptic ulcer disease. I wou ld recommend we proceed with EGD tomorrow for further investigation. Continue to hold Eliquis for no w. The patient will likely need to be on chronic acid suppression going forward. Further recommenda tions following endoscopy tomorrow.
[2017-07-24] MEDS ORDERED: cloNIDine 0.1 MG TAB PO PRN (17:28)
[2017-07-24] MEDS ORDERED: hydrALAZINE 20 MG/ML VIAL SLOW IVP PRN (17:29)
[2017-07-24] MEDS ORDERED: Carvedilol 6.25 MG TAB PO SCH (17:30)
[2017-07-24] MEDS: Atorvastatin Calcium 40 MG TAB PO SCH (20:23)
[2017-07-25 05:18] LABS: Hematocrit 24.8 % (42.0-52.0)
[2017-07-25 05:35] LABS: Anion Gap 18 mmol/L (10-20); BUN (Urea Nitrogen) 87 mg/dL (8.4-25.7); Calc. Creatinine Clearance 8 mL/min (70-130); Calcium 8.7 mg/dL (7.8-10.44); Carbon Dioxide 19 mmol/L (23-31); Chloride 103 mmol/L (98-107); Estimated GFR-MDRD 7
--- NOTE | 2017-07-25 07:11 | PDOC.CTH ---
Cardiology Progress Note - Subjective He is doing well. No chest pain, tightness, pressure. No more melena. - Objective Vital Signs Temp Pulse Resp BP BP Pulse Ox 07/25/17 04:00 98.5 F 80 18 162/78 H 98 07/24/17 20:17 99.0 F 82 18 163/83 H 98 07/24/17 20:00 99.0 F 82 18 Admit Weight 125 lb Weight 133 lb 8 oz 07/24/17 07/25/17 07/26/17 06:59 06:59 06:59 Intake Total 1240 1010 Output Total 525 900 Balance 715 110 - Physical Examination General/Neuro: alert & oriented x3, NAD Neck: no JVD present Lungs: CTA, unlabored respirations Heart: RRR Abdomen: NT/ND Extremities: other: (No edema) - Telemetry Telemetry Rhythm: NSR - Labs Result Diagrams: 07/25/17 04:57 07/25/17 04:57 Troponin/CKMB Troponin I 0.998 ng/mL (< 0.028) H* 07/22/17 23:18 - Assessment/Plan 1. Hypoglycemia 2. UGI bleed. 3. Melena 4. Recent BMS to LAD 3 weeks ago 5. Anemia PLAN: - Endoscopy today. - PPI BID - Hold all antiplatelets and all anticoagulants for now. - Once safe from GI perspective start plavix first.
[2017-07-25] MEDS ORDERED: Carvedilol 25 MG TAB PO SCH (08:00)
[2017-07-25] MEDS: Sevelamer Carbonate 800 MG TAB PO SCH ×3 (09:03→10:45)
[2017-07-25] MEDS: glipiZIDE 5 MG TAB PO SCH (09:03)
[2017-07-25] MEDS ORDERED: Ondansetron HCl/PF 4 MG/2 ML Vial IVP PRN (09:30)
--- NOTE | 2017-07-25 09:57 | OP ---
DATE OF PROCEDURE: 07/25/2017 SURGEON: Kaiden Bob M.D. EMISSION TECHNICIAN SURGEON: None. PROCEDURE: Esophagogastroduodenoscopy, diagnostic. INDICATION: 1. Melena, single episode. 2. Acute on chronic anemia. 3. History of peptic ulcer disease. MEDICATIONS: See anesthesia record. FINDINGS: After discussion of the risks, benefits and alternatives of the procedure, informed consen t was obtained and witnessed. Pre-endoscopic cardiopulmonary examination was satisfactory. Timeout was performed before sedation was achieved. Sedation was achieved with anesthesia assistance in the endoscopy unit. A Pentax adult upper endoscope was placed into the oropharynx and passed through the cricopharyngeus under direct visualization. The esophageal mucosa appeared normal throughout with a normal-appearing Z-line. The endoscope was advanced into the stomach. Forward and retroflexed view s of the entire gastric mucosa were obtained. The gastric mucosa appeared normal throughout. There was no evidence of any old blood or active bleeding, no mucosal lesions in the stomach. The endoscop e was advanced through the pylorus and into the first and second portions of the duodenum. In the du odenal bulb, there is moderate duodenitis characterized by erythema and friability. There are no janine p erosions or ulcerations. There is no old blood or active bleeding noted, but passage of the endosc ope beyond the duodenal sweep did induce some mild oozing in the duodenal bulb. No biopsies were obt ained on today's examination. This was biopsied last year and there was no evidence of H. pylori at that time, the upper endoscope was then completely withdrawn and the patient allowed to recover. The patient tolerated the procedure well. There were no immediate post-procedure complications. IMPRESSION: 1. Duodenitis in the bulb, characterized by erythema and friability. No active hemorrhage. 2. Otherwise, normal esophagogastroduodenoscopy. RECOMMENDATIONS: 1. Daily oral proton pump inhibitor on discharge. 2. Advance diet. 3. Okay to restart Plavix from a GI perspective.
[2017-07-25] MEDS: Losartan Potassium 25 MG TAB PO SCH (10:45)
[2017-07-25 12:09] VITALS: BP 149/72; TEMP 97.2
--- NOTE | 2017-07-25 12:11 | PDOC.PN ---
- Subjective Encounter Start Date: 07/25/17 Encounter Start Time: 12:09 Subjective: s/p EGD this morning. feels better -: no more melena/hematochezia - Objective Resuscitation Status: Resuscitation Status FULL:Full Resuscitation MAR Reviewed: Yes Vital Signs & Weight: Vital Signs (12 hours) Temp Pulse Resp BP BP Pulse Ox 07/25/17 11:17 97.2 F L 78 20 149/72 H 99 07/25/17 10:03 98.0 F 70 20 116/62 98 07/25/17 08:00 98.5 F 80 18 07/25/17 07:45 98.5 F 75 16 138/71 96 07/25/17 04:00 98.5 F 80 18 162/78 H 98 Weight Admit Weight 125 lb Weight 133 lb 8 oz I&O: 07/24/17 07/25/17 07/26/17 06:59 06:59 06:59 Intake Total 1240 1010 Output Total 525 900 150 Balance 715 110 -150 Result Diagrams: 07/25/17 04:57 07/25/17 04:57 Additional Labs: Accuchecks 07/25/17 07/25/17 07/24/17 10:41 06:18 20:26 POC Glucose 79 88 76 07/24/17 16:40 POC Glucose 263 H Laboratory Tests 07/23/17 07/24/17 07/25/17 05:09 05:44 04:57 Hgb 9.6 L 8.8 L 8.0 L Phys Exam - Physical Examination Constitutional: NAD HEENT: PERRLA, moist MMs, sclera anicteric, oral pharynx no lesions Neck: no nodes, no JVD, supple, full ROM Respiratory: no wheezing, no rales, no rhonchi, clear to auscultation bilateral Cardiovascular: RRR, no significant murmur, no rub, gallop Gastrointestinal: soft, non-tender, no distention, positive bowel sounds Musculoskeletal: no edema, pulses present Neurological: non-focal, normal sensation, moves all 4 limbs Psychiatric: normal affect, A&O x 3 Skin: no rash Dx/Plan (1) Melena Code(s): K92.1 - MELENA Status: Acute (2) Dyspnea Code(s): R06.00 - DYSPNEA, UNSPECIFIED Status: Resolved Comment: Likley anxiety (3) Hepatitis C Code(s): B19.20 - UNSPECIFIED VIRAL HEPATITIS C WITHOUT HEPATIC COMA Status: Chronic (4) Severe protein-calorie malnutrition Code(s): E43 - UNSPECIFIED SEVERE PROTEIN-CALORIE MALNUTRITION Status: Chronic (5) Anemia of renal disease Code(s): D63.1 - ANEMIA IN CHRONIC KIDNEY DISEASE Status: Chronic (6) CAD (coronary artery disease) Code(s): I25.10 - ATHSCL HEART DISEASE OF [place] CORONARY ARTERY W/O ANG PCTRS Status: Chronic Qualifiers: (7) Chronic anticoagulation Code(s): Z79.01 - MCC (CURRENT) USE OF ANTICOAGULANTS Status: Chronic Comment: eliquis on hold for now (8) Diabetes type 2, controlled Code(s): E11.9 - TYPE 2 DIABETES MELLITUS WITHOUT COMPLICATIONS Status: Chronic Qualifiers: (9) ESRD (end stage renal disease) on dialysis Code(s): N18.6 - END STAGE RENAL DISEASE; Z99.2 - DEPENDENCE ON RENAL DIALYSIS Status: Chronic (10) HTN (hypertension) Code(s): I10 - ESSENTIAL (PRIMARY) HYPERTENSION Status: Chronic Qualifiers: (11) Secondary hyperparathyroidism of renal origin Code(s): N25.81 - SECONDARY HYPERPARATHYROIDISM OF RENAL ORIGIN Status: Chronic (12) Throat cancer Code(s): C14.0 - MALIGNANT NEOPLASM OF PHARYNX, UNSPECIFIED Status: Chronic Comment: s/p ChemoRx and XRT - Plan DVT proph w/SCDs Mild doudenitis in EGD.Ok to resume plavix per GI.confirmed w Cardiology. -: will hold ASA,eliquis for now. -: OK to Dc per cardiology.discussed w Dr. Barrera. -: hemodynamically stable. -: OP f/u w cardiology & GI.Needs Hep C Rx possibly as well. * . Review of Systems - Review of Systems Constitutional: negative: Fever, Chills, Sweats, Weakness, Malaise, Other Respiratory: negative: Cough, Dry, Shortness of Breath, Hemoptysis, SOB with Excertion, Pleuritic Pain, Sputum, Wheezing Cardiovascular: negative: Chest Pain, Palpitations, Orthopnea, Paroxysmal Noc. Dyspnea, Edema, Light Headedness, Other Gastrointestinal: negative: Nausea, Vomiting, Abdominal Pain, Diarrhea, Constipation, Melena, Hematochezia, Other Genitourinary: negative: Dysuria, Frequency, Incontinence, Hematuria, Retention , Other Musculoskeletal: negative: Neck Pain, Shoulder Pain, Arm Pain, Back Pain, Hand Pain, Leg Pain, Foot Pain, Other Neurological: negative: Weakness, Numbness, Incoordination, Change in Speech, Confusion, Seizures, Other - Medications/Allergies Allergies/Adverse Reactions: Allergies Allergy/AdvReac Type Severity Reaction Status Date / Time codeine Allergy Intermediate MADE PT Verified 06/04/17 00:01 VERY SICK TO STOMACH, NAUSEA Medications: Current Medications Acetaminophen (Tylenol) 650 mg PO Q4H PRN PRN Reason: Headache/Fever or Pain Atorvastatin Calcium (Lipitor) 80 mg PO [facility] Last Admin: 07/24/17 20:23 Dose: 80 mg Bisacodyl (Dulcolax) 10 mg PO DAILYPRN PRN PRN Reason: Constipation Carvedilol (Coreg) 25 mg PO BID-[facility] Last Admin: 07/25/17 06:42 Dose: 25 mg Clonidine (Catapres) 0.1 mg PO Q4H PRN PRN Reason: SBP>160 Dextrose/Water (Dextrose 50%) 25 gm SLOW IVP PRN PRN PRN Reason: Hypoglycemia Glipizide (Glucotrol) 5 mg PO QAM-[facility] Last Admin: 07/25/17 09:03 Dose: Not Given Glucagon (Glucagon) 1 mg IM PRN PRN PRN Reason: Hypoglycemia Hydralazine HCl (Apresoline) 10 mg SLOW IVP Q4H PRN PRN Reason: SBP>170 Dextrose/Water (D5w) 1,000 mls @ 0 mls/hr IV .Q0M PRN; As Directed PRN Reason: Hypoglycemia Insulin Human Lispro (Humalog) 0 units SC .MILD SLIDING SCALE PRN PRN Reason: Mild Correctional Scale Last Admin: 07/24/17 17:03 Dose: 6 unit Losartan Potassium (Cozaar) 25 mg PO DAILY [facility] Last Admin: 07/25/17 10:45 Dose: 25 mg Nitroglycerin (Nitrostat) 0.4 mg SL Q5MIN PRN PRN Reason: Chest Pain Ondansetron HCl (Pacu-Zofran) 4 mg IVP ONE PRN PRN Reason: Nausea/Vomiting Stop: 07/25/17 12:30 Pantoprazole Sodium (Protonix) 40 mg PO BID [facility] Last Admin: 07/25/17 10:47 Dose: 40 mg Sevelamer Carbonate (Renvela) 2,400 mg PO TID-[facility] Last Admin: 07/25/17 10:45 Dose: 2,400 mg Temazepam (Restoril) 15 mg PO HSPRN PRN PRN Reason: Insomnia Last Admin: 07/24/17 20:22 Dose: 15 mg
[2017-07-25] MEDS ORDERED: Lidocaine 1% PF 5 ML VIAL ONE (13:31)
[2017-07-25] MEDS ORDERED: Propofol 200 MG/20 ML VIAL ONE (13:31)
--- NOTE | 2017-07-25 15:11 | DIS ---
DATE OF ADMISSION: 07/22/2017 DATE OF DISCHARGE: 07/25/2017 CONDITION AT THE TIME OF DISCHARGE: Stable and improved. DISCHARGE DIAGNOSES: 1. Dyspnea, noncardiac. 2. Melena resolved. 3. Chronic hepatitis C. 4. Severe protein calorie malnutrition. 5. Anemia of chronic kidney disease. 6. End-stage renal disease on hemodialysis. 7. Coronary artery disease, status post stenting. 8. Chronic anticoagulation status. 9. Diabetes mellitus type 2. 10. Hypertension. 11. Secondary hyperparathyroidism of renal origin. 14. History of head and neck cancer, status post chemo and radiation therapy. DISCHARGE MEDICATIONS: At this time, the patient will hold the following medications: Atorvastatin 80 mg daily, Plavix 75 mg daily, hydrocodone as needed, Cozaar 25 mg daily, glipizide 5 mg daily, [place] castrejon 2400 t.i.d. NEW MEDICATIONS: 40 mg p.o. b.i.d. NEW DOSAGES: Coreg 25 mg p.o. b.i.d., it is increased from 12.5 mg p.o. b.i.d. HOLD THE FOLLOWING MEDICATIONS: 1. Aspirin. 2. Eliquis. PRIMARY CARE PHYSICIAN: Johana Rahman D.O. PRIMARY TOUR LEADER: Bob Barrera M.D. DISCHARGE DISPOSITION: Home. DISCHARGE FOLLOWUP: 1. Cardiology. 2. PCP. 3. Gastroenterology. INPATIENT CONSULTATIONS: 1. Gastroenterology. 2. Cardiology. PROCEDURES DONE IN THE HOSPITAL: Include, 1. Transthoracic echocardiogram which is unchanged from his previous echo and showed EF of 50% with hypokinesis of the inferior wall. Grade I/III diastolic dysfunction is seen. 2. EGD prior to discharge on 07/25/2017 which showed mild duodenitis without any active hemorrhage, otherwise normal esophagogastroduodenoscopy. 3. Maintenance hemodialysis. HISTORY OF PRESENTING ILLNESS: Mr. Little is a pleasant 62-year-old male with past medical history a s stated above who presented to the ER with complaints of shortness of breath. He recently has had a cardiac stenting done earlier this month and was brought in to rule out angina or cardiac causes of his dyspnea. He was admitted on telemetry unit. His initial cardiac enzymes and EKG was unremarkabl e. Please see admission history and physical for further details. HOSPITAL COURSE: Nephrology was consulted to continue maintenance hemodialysis and the patient recei agnes the same. Cardiology was consulted and Dr. Barrera saw the patient as he has had a recent cardiac catheterizatio n. After cardiology evaluation and personal examination and discussing with the patient, it seemed l bunny his symptoms are more secondary to anxiety than ACS. His cardiac enzymes were trended and they w ere still trending down from his last hospitalization and catheterization. There were no acute bah es in troponins. Dr. Barrera recommended repeat echocardiogram, which was done and it was also unchan ged from his last echocardiogram that was done on 04/26/2017. He was continued on his home medicatio n except for Eliquis, which was held at the time of admission in case he would need a repeat heart ca theterization. He was cleared for discharge by the Cardiology team. Unfortunately, just prior to discharge, the patient had a melenotic stool which was not witnessed by anybody. Occult blood was tested later, which tested positive. His hemoglobin did trend somewhat to fernando downwards. At this time, his aspirin and Plavix were also held and Gastroenterology was consult ed. He underwent EGD by Dr. Kaiden Bob. Because it showed only mild duodenitis, he instructed him t o be restarted on Plavix. At this time, he is instructed by Dr. Barrera to continue to hold his aspir in and Eliquis. Prior to discharge, all discharge plan was discussed with the patient. He has been ruled out for any cardiac causes of his shortness of breath. He did not have any active bleed on EGD. He is started on b.i.d. Protonix for one month and then daily Protonix for the rest of his life with regards to his upper GI bleed. He also has history of severe GI bleed in the past with peptic ulcer disease. He a lso has history of chronic hepatitis C without any treatment. He is referred to Gastroenterology, Dr Marilu Faustin back as he has not seen him in years. He also instructed to follow up with his primary care physician and crankshaft grinder in the outpatient setting, so he can be appropriately restarted on aspirin and Eliquis whenever it is feasible. Please see hospitalist progress note from today's date for further detail including hiem-me-llyc inte raction. Total time spent in the discharge 33 minutes.
== END 2017-07-25 13:30 | disposition home or self-care (01) ==
LOC: ERS 19:39 → 2SW 21:23
PROVIDERS: ADMIT Internal Medicine; ATTEND Internal Medicine
PROC: 0DJ08ZZ Inspection of Upper Intestinal Tract, Via Natural or Artificial Opening Endoscopic (ICD-10-PCS; principal; 2017-07-25)
DX: K29.80 Duodenitis without bleeding (principal); K92.1 Melena; R06.02 Shortness of breath; B18.2 Chronic viral hepatitis C; E43 Unspecified severe protein-calorie malnutrition; I12.0 Hypertensive chronic kidney disease with stage 5 chronic kidney disease or end stage renal disease; E11.22 Type 2 diabetes mellitus with diabetic chronic kidney disease; N18.6 End stage renal disease; D63.1 Anemia in chronic kidney disease; I25.10 Atherosclerotic heart disease of native coronary artery without angina pectoris; Z95.5 Presence of coronary angioplasty implant and graft; N25.81 Secondary hyperparathyroidism of renal origin; Z88.5 Allergy status to narcotic agent; Z79.82 Long term (current) use of aspirin; Z79.01 Long term (current) use of anticoagulants; Z79.899 Other long term (current) drug therapy; Z85.89 Personal history of malignant neoplasm of other organs and systems; Z92.3 Personal history of irradiation; Z92.21 Personal history of antineoplastic chemotherapy
CPT/HCPCS: 43235; 80048 ×2; 82274; 82962 ×4; 83880; 84484; 85014 ×2; 85018 ×2; 85025; 90732; 93306; 99285; G0009; G0378 ×2; 36415; 36416; 90471; J2001; J2704

== ENCOUNTER 2017-11-04 18:22 | Inpatient (IN) | payer MEDICARE ==
[~2017-11-04 18:22] MED LIST: ISOVUE-370 76%-LOCM 1 ML ONE
[2017-11-04 19:51] LABS: #Eosinphils 0.5 thou/uL (0.0-0.7); #Lymphocytes 0.5 thou/uL (1.20-3.40); #Monocytes 0.8 thou/uL (0.11-0.59); #Neutrophils 4.1 thou/uL (1.40-6.50); %Basophils 0.4 % (0.0-1.0); %Eosinophils 8.5 % (0.0-10.0); %Lymphocytes 8.8 % (21.0-51.0); %Monocytes 13.8 % (0.0-10.0); %Neutrophils 68.5 % (42.0-75.0); Hemoglobin 9.8 g/dL (14.0-18.0); Mean Corpuscular HGB CONC 30.6 g/dL (32.0-36.0); Mean Corpuscular Hemoglobin 29.2 pg (27.0-31.0); Mean Corpuscular Volume 95.3 fl (80.0-94.0); Mean Platelet Volume 9.2 fL (7.4-10.4); Platelet Count 122 thou/uL (130-400); RBC Distribution Width 16.8 % (11.5-14.5); Red Blood Cell (RBC) Count 3.34 mill/uL (4.70-6.10)
--- NOTE | 2017-11-04 19:58 | RAD ---
PORTABLE CHEST ONE VIEW: 11/04/17 at 7:32 p.m. HISTORY: Pneumonia, generalized weakness. FINDINGS: Comparison is made with exam of 07/22/17. The heart is enlarged. The lungs are expanded without focal areas of consolidation, pneumothorax, fra nk pulmonary edema or pleural effusions. The aorta is tortuous. IMPRESSION: Cardiomegaly. POS: [facility]
[2017-11-04 20:09] LABS: ALT (SGPT) 21 U/L (8-55); AST (SGOT) 28 U/L (5-34); Albumin 3.5 g/dL (3.4-4.8); Alkaline Phosphatase 112 U/L (40-150); Anion Gap 15 mmol/L (10-20); BUN (Urea Nitrogen) 46 mg/dL (8.4-25.7); Bilirubin, Total 0.7 mg/dL (0.2-1.2); CK (CPK) 53 U/L (30-200); Calc. Creatinine Clearance 0 mL/min (70-130); Calcium 9.5 mg/dL (7.8-10.44); Carbon Dioxide 28 mmol/L (23-31); Chloride 96 mmol/L (98-107); Estimated GFR-MDRD 13; Globulin 5.2 g/dL (2.4-3.5); Glucose 96 mg/dL (80-115); Lipase 24 U/L (8-78); Magnesium 2.1 mg/dL (1.6-2.6); Potassium 4.5 mmol/L (3.5-5.1); Protein, Total 8.7 g/dL (5.8-8.1); Sodium 134 mmol/L (136-145)
[2017-11-04 20:12] LABS: CKMB 2.7 ng/mL (0-6.6)
[2017-11-04 20:22] LABS: Troponin I 2.121 ng/mL (< 0.028)
[2017-11-04] MEDS ORDERED: Cefepime 2 GM, Syringe 2.5 ML in Sodium Chloride 0.9% 10 ML SLOW IVP SCH (20:30)
[2017-11-04 22:15] LABS: INR-International Normal Ratio 1.2; Prothrombin Time 15.6 SEC (12.0-14.7)
[2017-11-04] MEDS ORDERED: Heparin 25,000 units/D5W 500 ML IV SCH (22:15)
[2017-11-04] MEDS ORDERED: Heparin 10,000 UNITS/ 10 ML VIAL SLOW IVP SCH (22:15)
[2017-11-04 22:16] LABS: PTT 39.7 SEC (22.9-36.1)
[2017-11-04 22:17] LABS: D-Dimer Test 0.93 *mcg/mL (0.27-0.43)
[2017-11-04 22:45] LABS: Bilirubin Negative (Negative); Blood, Urine Trace (Negative); Clarity CLOUDY (Clear); Glucose, Urine (Dipstick) Negative (Negative); Leukocyte Small (Negative); Nitrite Negative (Negative); Protein, Urine (Dipstick) 300 mg/dL (Neg-Trace); Specific Gravity, Urine 1.013 (1.002-1.036); Urobilinogen 0.2 mg/dL (0.2-1.0)
[2017-11-04 22:47] LABS: Bacteria/HPF 3+ HPF (None Seen); Hyaline Casts/LPF 0-3 HYALINE CAST LPF (0-3 Hyaline); Squamous Epithelial None Seen HPF (0-3); WBC/HPF 21-50 HPF (0-3)
[2017-11-04 22:56] LABS: Troponin I 2.646 ng/mL (< 0.028)
--- NOTE | 2017-11-04 23:07 | CT ---
CT PULMONARY ANGIOGRAM WITH IV CONTRAST AND 3D POSTPROCESSIN11/04/17 HISTORY: Generalized weakness, cough, nausea, smoker for about 50 years. Patient is a dialysis patient. [place] us cell carcinoma head and neck malignancy. FINDINGS: The pulmonary artery vasculature is well opacified without filling defects to suggest pulmonary embol ism. Vascular calcifications are present without evidence of aneurysmal dilatation of the abdominal a brenton. Mediastinal lymphadenopathy is present measuring up to 16-17 mm. There are vascular calcifications without evidence of aneurysmal dilatation of the thoracic aorta. A tiny pericardial effusion is present. No pleural effusions or pneumothoraces are seen. There is scarr ing in the lung apices. There are bilateral pulmonary nodules. The largest is in the left upper lobe measuring about 1 cm. The remainder measure up to 5 mm. No osteolytic or osteoblastic lesions are see n. IMPRESSION: 1. No CT evidence for pulmonary embolism. 2. Pulmonary nodules suspicious for metastatic disease. Further evaluation with PET scan is quita mmended. CODE T POS: [facility]
--- NOTE | 2017-11-04 23:18 | PDOC.PN ---
- Subjective Encounter Start Date: 11/04/17 Encounter Start Time: 23:18 - Objective Result Diagrams: 11/04/17 19:30 11/04/17 19:30 Dx/Plan - Plan * . Review of Systems - Medications/Allergies Allergies/Adverse Reactions: Allergies Allergy/AdvReac Type Severity Reaction Status Date / Time codeine Allergy Intermediate MADE PT Verified 06/04/17 00:01 VERY SICK TO STOMACH, NAUSEA Medications: Current Medications Heparin Sodium (Porcine) (Heparin 1,000 Units/Ml (10 Ml)) 0 units SLOW IVP [facility] [place] Stop: 11/05/17 10:15 Heparin Sodium/Dextrose (Heparin 25,000 Units/D5w 500 Ml) 500 mls @ 0 mls/hr IV INF ANTON; As Directed PRN Reason: Protocol Stop: 11/05/17 10:15
[2017-11-05 02:05] VITALS: BMI 22.7
[2017-11-05] MEDS ORDERED: Dextrose 5% in Water 1,000 ML IV PRN (05:14)
[2017-11-05] MEDS ORDERED: Senokot 8.6 MG TAB PO PRN (05:14)
[2017-11-05] MEDS ORDERED: Dextrose 50% Abboject 50 ML SYRINGE SLOW IVP PRN (05:14)
[2017-11-05] MEDS ORDERED: Ondansetron HCl/PF 4 MG/2 ML Vial IVP PRN (05:14)
[2017-11-05] MEDS ORDERED: Nitroglycerin 0.4 MG TAB (25 Tab Bottle) SL PRN (05:14)
[2017-11-05] MEDS ORDERED: Acetaminophen 325 MG TAB PO PRN (05:14)
[2017-11-05] MEDS ORDERED: Insulin Regular 300 UNITS/3 ML VIAL SC PRN ×2 (05:14)
[2017-11-05] MEDS ORDERED: Bisacodyl 10 MG SUPP PR PRN (05:14)
[2017-11-05] MEDS ORDERED: Ondansetron ODT 4 MG TAB PO PRN (05:14)
[2017-11-05] MEDS ORDERED: Heparin 25,000 units/D5W 500 ML IVPB SCH (05:15)
--- NOTE | 2017-11-05 05:35 | HP ---
DATE OF ADMISSION: 11/04/2017 Please note the patient was seen and examined on 11/04/2017. PRIMARY CARE PHYSICIAN: Johana Rahman D.O. CHIEF COMPLAINT: Generalized weakness. HISTORY OF PRESENT ILLNESS: The patient is a 62-year-old white male with coronary artery disease, st atus post stent placement; end-stage renal disease, on hemodialysis; diabetes mellitus type 2; and hy pertension; presented to the emergency room with generalized weakness for the past few days associate d with some nausea. He also had some intermittent coughing with production of thick whitish phlegm. He felt febrile; however, denies any chills. He denies any syncope, chest pain, palpitations, light headedness, dizziness or syncope. No recent immobilization, travel reported. He is compliant with a ll of his medications. In the emergency room, his initial vital signs showed temperature 100.4, respirations 24, pulse rate of 86 with a blood pressure of 90/60 with O2 saturation 95% on room air. His initial troponin was 2. 1 with a repeat troponin of 2.6. He was started on heparin drip after discussion with adjunct instructor of women's studies katlyn n the emergency room. PAST MEDICAL HISTORY: 1. Coronary artery disease, status post stent placement. 2. Chronic hepatitis C. 3. Diabetes mellitus type 2. 4. Hypertension. 5. Hyperlipidemia. 6. Former smoker. 7. History of head and neck malignancy status post chemotherapy and radiation. 8. Chronic anemia. 9. Secondary hyperparathyroidism. 10. History of cerebrovascular accident. PAST SURGICAL HISTORY: 1. Right shoulder surgery. 2. Dialysis access. 3. Left finger surgery. PAST PSYCHIATRIC HISTORY: Anxiety and depression. ALLERGIES: The patient is allergic to CODEINE. CURRENT HOME MEDICATIONS: Per [employer], Renvela 2400 mg 3 times a day, Ambien as needed, Protonix 40 mg daily, Cozaar 25 mg b.i.d., [place] as needed, glipizide 5 mg daily, carvedilol 25 mg b.i.d., Lipit or 80 mg at bedtime, aspirin 81 mg daily, Xanax as needed. SOCIAL HISTORY: The patient currently lives at home. No current use of tobacco, alcohol, drug use. He quit smoking last year. He also has a history of cannabis abuse. No alcohol reported. FAMILY HISTORY: Positive for diabetes and hypertension. REVIEW OF SYSTEMS: The following complete review of systems was negative, unless otherwise mentioned in the HPI or below: Constitutional: Weight loss or gain, ability to conduct usual activities. Skin: Rash, itching. Eyes: Double vision, pain. ENT/Mouth: Nose bleeding, neck stiffness, pain, tenderness. Cardiovascular: Palpitations, dyspnea on exertion, orthopnea. Respiratory: Shortness of breath, wheezing, cough, hemoptysis, fever or night sweats. Gastrointestinal: Poor appetite, abdominal pain, heartburn, nausea, vomiting, constipation, or diarr hea. Genitourinary: Urgency, frequency, dysuria, nocturia. Musculoskeletal: Pain, swelling. Neurologic/Psychiatric: Anxiety, depression. Allergy/Immunologic: Skin rash, bleeding tendency. PHYSICAL EXAMINATION: VITAL SIGNS: As discussed above. GENERAL: A 62-year-old male, ill appearing. Denies any chest pain. HEENT: Head atraumatic, normocephalic. Sclerae are anicteric. Moist mucous membrane, no oral lesio n. NECK: Supple, no JVD, no carotid bruit. LUNGS: Clear to auscultation bilaterally, no wheezing, rales or rhonchi. HEART: S1, S2 present. Regular rate and rhythm, 2/6 systolic murmur over the mitral area. ABDOMEN: Soft, nontender, bowel sounds present. EXTREMITIES: No edema or calf tenderness. NEUROLOGIC: Grossly nonfocal, moves all four extremities. PSYCHIATRY: Alert, awake, oriented x3. SKIN: Warm and dry. LYMPH NODES: No palpable lymph nodes in the neck. PERIPHERAL VASCULAR: Radial pulses palpable bilaterally. MUSCULOSKELETAL: No joint swelling or tenderness. LABORATORY DATA AND X-RAY FINDINGS: CBC showed WBC 6.0 with hemoglobin 9.8. D-dimer was 0.93. Trop onin 2.121. Potassium 4.5, sodium 135, creatinine 4.73. Urinalysis showed 21-50 wbc's with 3+ bacte will. Influenza testing was negative. Chest x-ray by my review was negative for infiltrate. EKG by my review showed ST-T wave changes in t he lateral leads with left ventricular hypertrophy. CT angiogram of the chest was negative for pulmonary embolism. It showed pulmonary nodule suspicious for metastatic disease. IMPRESSION: 1. Non-ST elevation myocardial infarction. 2. Generalized weakness. 3. Acute bronchitis. 4. End-stage renal disease on hemodialysis. 5. Abnormal CT scan of the chest. The patient has pulmonary nodule suspicious for metastatic diseas e. 6. Anemia of chronic renal insufficiency. 7. Diabetes mellitus type 2. 8. Hypertension. 9. History of head and neck cancer, status post chemo and radiation. 10. Secondary hyperparathyroidism. 11. Abnormal electrocardiogram. 12. Former smoker. 13. Anxiety, depression. 14. Coronary artery disease, status post bare metal stent to the left anterior descending in 06/2017 . 15. Chronic diastolic heart failure. PLAN: The patient will be monitored on the telemetry unit. The patient is currently on heparin drip which will be continued. Cardiology will be consulted. The patient had an echocardiogram in 7. We will discuss with Cardiology if patient needs a repeat echocardiogram. We will resume selecte d home medications. Plan of care was discussed with the patient in detail. He stated understanding.
[2017-11-05] MEDS ORDERED: Cepastat Lozenges 1 LOZ PO PRN (05:53)
[2017-11-05] MEDS: ALPRAZolam 0.5 MG TAB PO PRN ×2 (06:06→23:03)
[2017-11-05] MEDS: Heparin 10,000 UNITS/ 10 ML VIAL SLOW IVP SCH ×2 (06:23→13:17)
[2017-11-05 06:41] LABS: Hemoglobin 10.2 g/dL (14.0-18.0); Platelet Count 44 thou/uL (130-400)
[2017-11-05] MEDS: Docusate 100 MG CAP PO SCH ×2 (08:23→20:39)
[2017-11-05] MEDS: Aspirin 81 mg Enteric Coated Tablet PO SCH (08:23)
[2017-11-05] MEDS: guaiFENesin ER 600 MG TAB PO SCH ×2 (08:23→20:39)
[2017-11-05] MEDS: Cefdinir 300 MG CAP PO SCH (08:23)
[2017-11-05] MEDS: Carvedilol 25 MG TAB PO SCH ×2 (08:23→16:42)
[2017-11-05] MEDS ORDERED: HYDROcodone/Acetaminophen 5/325 mg Tablet PO PRN ×2 (08:45→08:46)
[2017-11-05] MEDS ORDERED: Famotidine 20 MG TAB PO SCH (09:00)
--- NOTE | 2017-11-05 11:55 | CON ---
NEPHROLOGY CONSULTATION NOTE DATE OF CONSULTATION: 11/05/2017 CONSULTING PHYSICIAN: Dr. Yin. REASON FOR CONSULTATION: End-stage renal disease evaluation and care REASON FOR ADMISSION: Weakness. HISTORY OF PRESENT ILLNESS: A 62-year-old male with history of coronary artery disease, hepatitis C, type 2 diabetes and hypertension who came to the hospital with weakness. Nephrology is consulted fo r maintenance hemodialysis; gets dialysis on Tuesday, Tuesday and Tuesday. No fever or chills. No n ausea or vomiting. PAST MEDICAL HISTORY: Positive for coronary artery disease, hepatitis C, type 2 diabetes, hypertensi on and hyperlipidemia. PAST SURGICAL HISTORY: Right shoulder surgery, dialysis access and left finger surgery. HOME MEDICATIONS: Renvela, Ambien, Cozaar, [place], carvedilol, Lipitor, aspirin and Xanax. ALLERGIES: CODEINE. SOCIAL HISTORY: No smoking, alcohol or illicit drug abuse. FAMILY HISTORY: Positive for diabetes and hypertension. REVIEW OF SYSTEMS: The following complete review of systems was negative, unless otherwise mentioned in the HPI or below: Constitutional: Weight loss or gain, ability to conduct usual activities. Skin: Rash, itching. Eyes: Double vision, pain. ENT/Mouth: Nose bleeding, neck stiffness, pain, tenderness. Cardiovascular: Palpitations, dyspnea on exertion, orthopnea. Respiratory: Shortness of breath, wheezing, cough, hemoptysis, fever or night sweats. Gastrointestinal: Poor appetite, abdominal pain, heartburn, nausea, vomiting, constipation, or diarr hea. Genitourinary: Urgency, frequency, dysuria, nocturia. Musculoskeletal: Pain, swelling. Neurologic/Psychiatric: Anxiety, depression. Allergy/Immunologic: Skin rash, bleeding tendency. PHYSICAL EXAMINATION: GENERAL: This is a thin-built male in no apparent distress. VITAL SIGNS: Temperature 97.8, pulse 75, respiratory 20 and blood pressure 129/80. HEENT: Atraumatic and normocephalic. Oral mucosa moist. NECK: Supple. No masses. CARDIOVASCULAR: S1 and S2 heard. Rate and rhythm regular. RESPIRATORY: Clear. GASTROINTESTINAL: Abdomen is soft. MUSCULOSKELETAL: 1+ edema. DERMATOLOGIC: No skin rash. NEUROLOGIC: Alert and awake. PSYCHIATRIC: Mood and affect normal. LABORATORY DATA: Hemoglobin is 9.8. Potassium is 4.5, BUN is 46 and creatinine is 4.7. ASSESSMENT AND PLAN: 1. End-stage renal disease, on dialysis today. Continue dialysis on Tuesday, Tuesday and Tuesday. 2. Hypertension, stable. 3. Edema, controlled. 4. Anemia, chronic. 5. Elevated troponin. Follow up with Cardiology. 6. We will continue on dialysis as tolerated.
[2017-11-05] MEDS ORDERED: Zolpidem Tartrate 5 MG TAB PO PRN ×2 (14:08→15:06)
--- NOTE | 2017-11-05 14:47 | CON ---
DATE OF CONSULTATION: 11/05/2017 REASON FOR CONSULTATION: Elevated troponin. PRIMARY STAIR BUILDER: Dr. Bob Barrera. HISTORY OF PRESENT ILLNESS: Mr. Little is a very pleasant 62-year-old gentleman with a history of en d-stage renal disease in addition to CAD with recent stent placement to the LAD and complete occlusio n of the right coronary artery with collaterals from the LAD, who presented with malaise and fatigue. He was diagnosed with pneumonia. No chest pain or pressure noted. Troponin was performed while in the emergency room and was elevated at 2.0. The patient was also noted to have fever in addition to hypotension. PAST MEDICAL HISTORY: As above including hepatitis C, diabetes mellitus, hypertension, hyperlipidemi a, anemia, CVA, shoulder surgery, and finger surgery. ALLERGIES: CODEINE. HOME MEDICATIONS: Include Renvela, Ambien, Protonix, Cozaar, [place], glipizide, carvedilol, Lipitor, aspirin. SOCIAL HISTORY: No current tobacco or alcohol use. REVIEW OF SYSTEMS: Ten-point review of systems is reviewed and is as above negative. PHYSICAL EXAMINATION: GENERAL: He does appear older than stated age. VITAL SIGNS: Blood pressure 121/77, pulse 67, temperature 97.9. NEUROLOGIC: The patient is alert and oriented times 3 with no focal neurologic deficits. HEENT: Sclerae without icterus. Mouth has moist mucous membranes with normal pallor. NECK: No JVD. Carotid upstroke brisk. No bruits bilaterally. LUNGS: Clear to auscultation with unlabored respirations. BACK: No scoliosis or kyphosis. CARDIAC: Regular rate and rhythm with normal S1 and S2. No S3 or S4 noted. No significant rubs, mu rmurs, thrills, or gallops noted throughout the precordium. PMI is not displaced. There is no jen ternal heave. ABDOMEN: Soft, nontender, nondistended. No peritoneal signs present. No hepatosplenomegaly. No abnormal striae. EXTREMITIES: 2+ femoral and 2+ dorsalis pedis pulses. No cyanosis, clubbing, or edema. SKIN: No gross abnormalities. PERTINENT LABORATORY DATA: Hemoglobin 10.2. Peak troponin 2.6. BNP of 12,000. IMPRESSION: 1. Elevated troponin. 2. Pneumonia. 3. Hepatitis C. 4. Diabetes mellitus. RECOMMENDATIONS: At this point, I would recommend heparin x24 hours. Mr. Little has no current symp toms suggesting angina. This is likely due to demand ischemia with an occluded right coronary artery with collaterals from the LAD. Nephrology has been consulted. Continue antibiotic therapy.
--- NOTE | 2017-11-05 14:59 | PDOC.PN ---
- Subjective Encounter Start Date: 11/05/17 Encounter Start Time: 15:00 Subjective: f/u for suspected NSTEMI and demand ischemia. Tx initially with Heparin -: gtt but platelets decreased 122 to 44K. No CP, SOB. Feels ok overall. -: Wanting to eat. - Objective Resuscitation Status: Resuscitation Status FULL:Full Resuscitation MAR Reviewed: Yes Vital Signs & Weight: Vital Signs (12 hours) Temp Pulse Pulse Pulse Resp BP BP 11/05/17 12:25 68 68 113/71 91/60 11/05/17 11:33 97.9 F 67 16 11/05/17 08:12 97.9 F 67 16 11/05/17 05:14 11/05/17 04:00 97.9 F 76 16 BP Pulse Ox Pulse Ox Pulse Ox 11/05/17 12:25 95 89 L 11/05/17 11:33 121/77 97 11/05/17 08:12 129/84 100 11/05/17 05:14 100 11/05/17 04:00 128/83 100 Weight Weight 158 lb 4.8 oz Result Diagrams: 11/05/17 05:25 11/04/17 19:30 Additional Labs: Accuchecks 11/05/17 11/05/17 11:05 06:40 POC Glucose 122 H 114 H Microbiology 11/04/17 19:28 Nasal swab Influenza Types A,B Direct EIA - Final 11/04/17 19:29 Venous blood - Right Arm Blood Culture - Preliminary Specimen has been received and culture in progress. No Growth to date. 11/04/17 19:28 Venous blood - Right Hand Blood Culture - Preliminary Specimen has been received and culture in progress. No Growth to date. Laboratory Tests 07/22/17 11/04/17 11/04/17 20:34 19:30 19:30 Hgb 9.8 L Plt Count 122 L Troponin I 2.121 H* B-Natriuretic Peptide 3890.9 H 11/04/17 11/04/17 19:30 22:21 Hgb Plt Count Troponin I 2.646 H* B-Natriuretic Peptide 67073.3 H Radiology Reviewed by me: Yes (PCXR - cardiomegaly) EKG Reviewed by me: Yes (Tele - SR in 's) Phys Exam - Physical Examination Constitutional: NAD HEENT: PERRLA, oral pharynx no lesions Neck: no JVD, supple Respiratory: no wheezing II/ MARLA RUSB Cardiovascular: RRR Gastrointestinal: soft, non-tender, no distention, positive bowel sounds Musculoskeletal: no edema, pulses present Neurological: normal sensation, moves all 4 limbs Psychiatric: A&O x 3 Skin: normal turgor, cap refill <2 seconds Dx/Plan (1) NSTEMI (non-ST elevated myocardial infarction) Code(s): I21.4 - NON-ST ELEVATION (NSTEMI) MYOCARDIAL INFARCTION Status: Acute Comment: s/p cardiac Cath and stenting 07/05/17, continue ASA, Lipitor and Coreg (2) CAD (coronary artery disease) Code(s): I25.10 - ATHSCL HEART DISEASE OF [place] CORONARY ARTERY W/O ANG PCTRS Status: Chronic Qualifiers: Comment: See above #1, appreciate Cardiology assistance (3) Bronchitis Code(s): J40 - BRONCHITIS, NOT SPECIFIED ACUTE OR CHRONIC Status: Acute Comment: Continue Omnicef 300mg daily (4) Diabetes type 2, controlled Code(s): E11.9 - TYPE 2 DIABETES MELLITUS WITHOUT COMPLICATIONS Status: Chronic Qualifiers: Comment: Continue Glipizide 5mg daily, ISS (5) ESRD (end stage renal disease) on dialysis Code(s): N18.6 - END STAGE RENAL DISEASE; Z99.2 - DEPENDENCE ON RENAL DIALYSIS Status: Chronic Comment: HD per Renal service (6) Hepatitis C Code(s): B19.20 - UNSPECIFIED VIRAL HEPATITIS C WITHOUT HEPATIC COMA Status: Chronic Qualifiers: Viral hepatitis chronicity: carrier Qualified Code(s): B18.2 - Chronic viral hepatitis C (7) Throat cancer Code(s): C14.0 - MALIGNANT NEOPLASM OF PHARYNX, UNSPECIFIED Status: Chronic Comment: s/p ChemoRx and XRT, no current Rx - Plan continue antibiotics, social welfare clerk, out of bed/ambulate Stable currently -: D/C Heparin gtt due to thrombocytopenia -: Continue Omnicef 300mg daily -: OOB/ambulate -: AM lab: BMP, CBC * 2D echo pending * Likely home in 24h
[2017-11-05] MEDS: Sevelamer Carbonate 800 MG TAB PO SCH (16:42)
[2017-11-05] MEDS ORDERED: Sevelamer Carbonate 800 MG TAB PO SCH (17:00)
[2017-11-05] MEDS: HYDROcodone/Acetaminophen 5/325 mg Tablet PO SCH (20:39)
[2017-11-05] MEDS: Losartan 25 MG TAB PO SCH (20:40)
[2017-11-05] MEDS ORDERED: Atorvastatin Calcium 40 MG TAB PO SCH (21:00)
[2017-11-06 05:46] LABS: Anion Gap 17 mmol/L (10-20); BUN (Urea Nitrogen) 69 mg/dL (8.4-25.7); Calc. Creatinine Clearance 12 mL/min (70-130); Calcium 9.2 mg/dL (7.8-10.44); Carbon Dioxide 24 mmol/L (23-31); Chloride 94 mmol/L (98-107); Estimated GFR-MDRD 9; Glucose 98 mg/dL (80-115); Sodium 130 mmol/L (136-145)
[2017-11-06 05:54] LABS: Troponin I 1.433 ng/mL (< 0.028)
[2017-11-06 06:14] LABS: Anisocytosis SLIGHT = 6-15 cells (100X) (0-5/hpf); Band 4 % (5-11); Eosinophils 6 % (0-10); Hemoglobin 8.9 g/dL (14.0-18.0); Lymphocytes 13 % (21-51); MDiff Complete? YES; Mean Corpuscular Hemoglobin 29.6 pg (27.0-31.0); Mean Corpuscular Volume 92.5 fl (80.0-94.0); Mean Platelet Volume 9.4 fL (7.4-10.4); Monocytes 14 % (0-10); Neutrophil 63 % (42-75); PLT Morphology Comment Appears Decreased; Platelet Clumps SLIGHT; Platelet Count 85 thou/uL (130-400); RBC Distribution Width 16.6 % (11.5-14.5)
[2017-11-06] MEDS ORDERED: glipiZIDE 5 MG TAB PO SCH (07:30)
[2017-11-06] MEDS: Losartan 25 MG TAB PO SCH (10:45)
[2017-11-06] MEDS: Sevelamer Carbonate 800 MG TAB PO SCH ×2 (10:45→14:56)
[2017-11-06] MEDS: Cefdinir 300 MG CAP PO SCH (10:46)
[2017-11-06] MEDS: Aspirin 81 mg Enteric Coated Tablet PO SCH (10:46)
[2017-11-06] MEDS: HYDROcodone/Acetaminophen 5/325 mg Tablet PO SCH (10:47)
[2017-11-06] MEDS: guaiFENesin ER 600 MG TAB PO SCH (10:47)
[2017-11-06] MEDS: Carvedilol 25 MG TAB PO SCH (10:47)
[2017-11-06] MEDS: Docusate 100 MG CAP PO SCH (10:48)
[2017-11-06 11:43] VITALS: BP 97/54; TEMP 97.3
--- NOTE | 2017-11-06 11:49 | PRG ---
DATE OF SERVICE: 11/06/2017 SUBJECTIVE: Patient was seen and examined at bedside and overnight events noted. Patient denies any shortness of breath or chest pain or palpitation. No history of nausea or vomiting or diarrhea or f ever or chills or cramps. OBJECTIVE: GENERAL: This is a well-built male in no apparent distress. VITAL SIGNS: Temperature 98.2, pulse 90, respiratory rate 16, blood pressure 111/69. HEENT: Atraumatic, normocephalic. Oral mucosa is moist. NECK: Supple. CARDIOVASCULAR: S1, S2 heard. Rate and rhythm regular. RESPIRATORY: Clear to auscultation. GASTROINTESTINAL: Abdomen is soft. MUSCULOSKELETAL: No tenderness. No edema. DERMATOLOGIC: No skin rash. NEUROLOGIC: Alert and awake and oriented x3. No focal neurologic deficits. Moving all the extremiti es. PSYCHIATRIC: Mood and affect normal. LABORATORY DATA: Potassium 5.0, BUN 69, creatinine 6.5. ASSESSMENT AND PLAN: 1. End-stage renal disease. Continue on hemodialysis, Tuesday, Tuesday, and Tuesday. 2. Hyperkalemia, mild, limit potassium. 3. Hyponatremia, limit fluid intake. 4. Edema. 5. Hypertension. 6. Anemia. Monitor hemoglobin. 7. Continue dialysis on Tuesday, Tuesday, and Tuesday.
--- NOTE | 2017-11-06 13:41 | PRG ---
DATE OF SERVICE: 11/06/2017 SUBJECTIVE: Mr. Little is stable. No current complaints. He is frustrated. He would like to go ho me. OBJECTIVE: VITAL SIGNS: Blood pressure 130/81, pulse 64 and temperature 97.5. LUNGS: Clear to auscultation. HEART: Regular rate and rhythm. ABDOMEN: Soft and nontender. EXTREMITIES: No edema. IMPRESSION: 1. Elevated troponin. 2. Recent pneumonia/bronchitis. 3. End-stage renal disease. 4. Coronary artery disease. 5. Occluded RCA. RECOMMENDATIONS: Mr. Little is currently stable. He has no current symptoms suggesting angina. My suspicion is his elevated troponin was secondary to occluded RCA. His LVEF is estimated at 30% to 35 %. I did discuss LifeVest with Mr. Little. He states he would like to go home and would like this d one as an outpatient. He understands the risk of sudden cardiac , although recent trial publish ed was not conclusive on utility of LifeVest. We will address as an outpatient.
--- NOTE | 2017-11-06 15:33 | DIS ---
DATE OF ADMISSION: 11/04/2017 DATE OF DISCHARGE: 11/06/2017 DISCHARGE DIAGNOSES: 1. Coronary artery disease with occluded right coronary artery with collaterals from left anterior d escending. 2. Demand ischemia. 3. Acute bronchitis. 4. Diabetes mellitus type 2, stable. 5. End-stage renal disease, on hemodialysis Tuesday, Tuesday, and Tuesday. 6. Hepatitis C, chronic. 7. Squamous cell carcinoma of the pharynx, status post chemotherapy and radiation. 8. Bilateral pulmonary nodules. CONSULTATIONS: Dr. Hamilton with Nephrology service and Dr. Fniney with Cardiology Service. PERTINENT LABORATORY AND X-RAY FINDINGS: Sodium ranged between 130-134 and creatinine ranged between 4.73-6.50. Estimated GFR ranged between 9-13. Magnesium level 2.1. Troponin I ranged between 1.43 -2.65. BNP 12,664, previously noted 3891 on 07/22/2017. CBC showed a hemoglobin ranging between 8.9 -10.2, MCV ranged between 93-95 and platelet count ranged between 44-122. Influenza A and B antigen on 11/04/2017 negative. Blood cultures x2 from 11/04/2017 showed no growth to date. Urine culture d ated 11/04/2017 showed gram positive cocci. CT angiogram of the chest dated 11/04/2017 showed no julio c dence for pulmonary embolus. Bilateral pulmonary nodules noted. Portable chest x-ray dated 11/05/19 18 showed cardiomegaly without acute infiltrate. 2D transthoracic echocardiogram dated 11/05/2017 sh owed ejection fraction of 30% to 35%. Previous ejection fraction 40% to 45% in 2017. Diastolic dysf unction noted. Mild to moderate mitral valve regurgitation. Mild to moderate tricuspid valve regurg itation. HOSPITAL COURSE: The patient was initially admitted to the telemetry unit after presenting with gene ralized weakness and nausea. The patient underwent extensive evaluation including multiple imaging m odalities and metabolic screening showing evidence of elevated troponin I, concerning for initially a non-ST elevation myocardial infarction. The patient with known history of coronary artery disease w ith occlusion of the right coronary artery with status post stent placement to the LAD with collatera ls from the LAD. The patient was evaluated by the Cardiology Service with recommendations for medica l management. The patient was placed on heparin infusion; however, this was discontinued due to thro mbocytopenia. The patient's thrombocytopenia did improve with discontinuation of heparin and patient essentially remained asymptomatic for remainder of the hospital course. No specific recommendations for an acute intervention and medical management was noted by the Cardiology Service. The patient a lso continued maintenance hemodialysis during the hospital course without complication. The patient was also initiated on Omnicef 300 mg daily after suspected bronchitis. The patient overall remained clinically stable with supportive management with telemetry monitoring showing a sinus mechanism with first-degree AV block. Overall, patient clinically at baseline functional status and ready for disc harge on 11/06/2017. DISCHARGE MEDICATIONS: 1. Enteric coated aspirin 81 mg 1 tab p.o. daily. 2. Xanax 0.5 mg p.o. b.i.d. 3. Lipitor 80 mg p.o. at bedtime. 4. Coreg 25 mg p.o. b.i.d. 5. Omnicef 300 mg p.o. daily x7 days. 6. Glipizide 5 mg p.o. daily. 7. Seco 5/325 mg 1-2 tabs p.o. b.i.d. p.r.n. pain. 8. Cozaar 25 mg p.o. b.i.d. 9. Protonix 40 mg p.o. b.i.d. 10. Renvela 2400 mg p.o. t.i.d. 11. Ambien 5 mg p.o. at bedtime p.r.n. FOLLOWUP: Patient may follow up with his primary care provider, Dr. Johana Rahman within 7 days of discharge. The patient will follow up with Dr. Barrera with [facility] and to call his office for appointment time and date. The patient will follow up with Dr. Hamilton with [facility] on Tuesday, Tuesday, and Tuesday. The patient will follow up with Dr. Mike barclay with [facility] and to call his office for appointment time and date. CONDITION ON DISCHARGE: Fair. ACTIVITY: Ad ivory. DIET: Heart healthy and ADA. CODE STATUS: FULL. DISPOSITION: Home on 11/06/2017. Total time preparing and coordinating discharge 34 minutes.
== END 2017-11-06 15:20 | disposition home or self-care (01) | DRG 280 ==
LOC: ERS 18:22 → 2NO 23:33
PROVIDERS: ADMIT Internal Medicine; ATTEND Internal Medicine
DX: I21.A1 Myocardial infarction type 2 (principal); N18.6 End stage renal disease; I13.2 Hypertensive heart and chronic kidney disease with heart failure and with stage 5 chronic kidney disease, or end stage renal disease; E11.22 Type 2 diabetes mellitus with diabetic chronic kidney disease; E87.1 Hypo-osmolality and hyponatremia; D69.59 Other secondary thrombocytopenia; I50.32 Chronic diastolic (congestive) heart failure; N25.81 Secondary hyperparathyroidism of renal origin; I25.82 Chronic total occlusion of coronary artery; I25.119 Atherosclerotic heart disease of native coronary artery with unspecified angina pectoris; Z99.2 Dependence on renal dialysis; Z95.5 Presence of coronary angioplasty implant and graft; Z79.84 Long term (current) use of oral hypoglycemic drugs; E78.5 Hyperlipidemia, unspecified; B19.20 Unspecified viral hepatitis C without hepatic coma; Z87.891 Personal history of nicotine dependence; Z85.819 Personal history of malignant neoplasm of unspecified site of lip, oral cavity, and pharynx; Z92.21 Personal history of antineoplastic chemotherapy; Z92.3 Personal history of irradiation; D63.1 Anemia in chronic kidney disease; J20.9 Acute bronchitis, unspecified; F41.9 Anxiety disorder, unspecified; F32.9 Major depressive disorder, single episode, unspecified; E87.5 Hyperkalemia; R91.1 Solitary pulmonary nodule; T45.515A Adverse effect of anticoagulants, initial encounter; Y92.239 Unspecified place in hospital as the place of occurrence of the external cause
CPT/HCPCS: 36415; 36416; 71045; 71275; 80048; 80053; 81003; 81015; 82550; 82553; 83605; 83690; 83735; 83880; 84484; 85014; 85018; 85025; 85049; 85379; 85610; 85730; 87040; 87077; 87086; 87186; 93005; 93306; 93798; 96365; 96375; A4216; J0692; J1644; J3370

== ENCOUNTER 2017-11-14 03:52 | Inpatient (IN) | payer MEDICARE ==
[2017-11-14] MEDS ORDERED: Heparin 5,000 UNITS/ML VIAL ONE (04:52)
[2017-11-14 06:13] LABS: Troponin I 0.415 ng/mL (< 0.028)
[2017-11-14] MEDS ORDERED: Nitroglycerin 0.4 MG TAB (25 Tab Bottle) SL PRN (06:53)
[2017-11-14] MEDS ORDERED: Heparin 25,000 units/D5W 500 ML IVPB SCH (07:00)
[2017-11-14] MEDS ORDERED: Heparin 10,000 UNITS/ 10 ML VIAL SLOW IVP SCH (07:00)
[2017-11-14 08:24] LABS: Hemoglobin 8.9 g/dL (14.0-18.0); Platelet Count 109 thou/uL (130-400)
[2017-11-14] MEDS ORDERED: Aspirin 325 MG TAB ONE (08:56)
[2017-11-14 08:59] LABS: Critical Call Chem Troponin I RESULT DECREASING; Troponin I 0.404 ng/mL (< 0.028)
[2017-11-14] MEDS ORDERED: HYDROcodone/Acetaminophen 5/325 mg Tablet ONE (09:03)
[2017-11-14] MEDS: Aspirin 325 MG TAB PO SCH (09:03)
[2017-11-14] MEDS ORDERED: Guaifenesin DM 100-10/5 ML UDCUP PO PRN (09:35)
[2017-11-14] MEDS ORDERED: Acetaminophen 325 MG TAB PO PRN (09:35)
[2017-11-14] MEDS ORDERED: Pepto Bismol Chew TAB PO PRN (09:35)
[2017-11-14] MEDS ORDERED: Senokot 8.6 MG TAB PO PRN (09:35)
[2017-11-14] MEDS ORDERED: HumaLOG 300 UNITS/3 ML VIAL SC PRN ×2 (09:44)
[2017-11-14] MEDS ORDERED: Dextrose 50% Abboject 50 ML SYRINGE SLOW IVP PRN (09:44)
[2017-11-14] MEDS ORDERED: Dextrose 5% in Water 1,000 ML IV PRN (09:44)
--- NOTE | 2017-11-14 10:43 | HP ---
REASON FOR ADMISSION: Shortness of breath and generalized weakness. HISTORY OF PRESENTING ILLNESS: The patient gives history of unable to sleep due to phlegm sticking in his throat and he was unable to bring it up. He has also been feeling very weak. Patient states that his recent infection has not really cleared up. He was discharged on from the hospital of this month after being treated for bronchitis. Has no fever as such. The patient states he has not been able to eat or drink much. He literally has no teeth and has no dentures as well. No complaints of chest pain, palpitation, PND or orthopnea. 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 His last chemo was in July. He has had radiation therapy with Dr. Castro as well. End stage renal disease, on hemodialysis Tuesday, Tuesday, and Tuesday, last session was Tuesday 3.5 hour session, history of CHF with ejection fraction of around 30%-35% , coronary artery disease with prior stent, chronic hepatitis C, hypertension, dyslipidemia, chronic anemia, history of CVA, right shoulder surgery, left upper extremity dialysis access surgery, left finger surgery, anxiety, depression. ALLERGIES: Allergic to CODEINE, but patient takes [place] at home. SOCIAL HISTORY: Quit smoking in July of last year after being diagnosed with cancer in his throat. Denies substance abuse or alcohol abuse. Lives with his mom. FAMILY HISTORY: There is history of diabetes and hypertension in the family. CURRENT MEDICATIONS: The patient is on alprazolam 0.5 mg p.o. twice daily p.r.n. for anxiety, aspirin 81 mg p.o. daily, Lipitor 80 mg p.o. at bedtime, Coreg 25 mg p.o. twice daily, was discharged on Omnicef 300 mg daily on to take for 7 days, glipizide 5 mg daily, [place] p.r.n. for pain, Cozaar 25 mg twice daily, Protonix 40 mg twice daily, sevelamer 2400 mg p.o. 3 times daily, zolpidem 5 mg p.o. at bedtime p.r.n. REVIEW OF SYSTEMS: The following complete review of systems was negative, unless otherwise mentioned in the HPI or below: Constitutional: Weight loss or gain, ability to conduct usual activities. Skin: Rash, itching. Eyes: Double vision, pain. ENT/Mouth: Nose bleeding, neck stiffness, pain, tenderness. Cardiovascular: Palpitations, dyspnea on exertion, orthopnea. Respiratory: Shortness of breath, wheezing, cough, hemoptysis, fever or night sweats. Gastrointestinal: Poor appetite, abdominal pain, heartburn, nausea, vomiting, constipation, or diarrhea. Genitourinary: Urgency, frequency, dysuria, nocturia. Musculoskeletal: Pain, swelling. Neurologic/Psychiatric: Anxiety, depression. Allergy/Immunologic: Skin rash, bleeding tendency. PHYSICAL EXAMINATION: GENERAL: The patient is a 62-year-old male who is currently not in any acute distress. VITAL SIGNS: Blood pressure 106/66, pulse 54 per minute, respiratory rate 20 per minute, temperature 97.7 degrees Fahrenheit, and saturating 97% on room air. NECK: Supple, no elevated JVD. HEENT: Extraocular muscles intact. Pupils are reacting to light. Oral cavity ; mucous membranes are moist. No exudates or congestion. CARDIOVASCULAR SYSTEM: S1, S2 heard. Regular rhythm. RESPIRATORY SYSTEM: Air entry 1+ bilateral. Scattered rhonchi plus bilateral. ABDOMEN: Soft, bowel sounds heard. No tenderness, rigidity or guarding. EXTREMITIES: No peripheral edema or calf tenderness. VASCULAR SYSTEM: Peripheral pulses 1+ bilateral, no ischemic ulcerations or gangrene. CENTRAL NERVOUS SYSTEM: No gross focal deficits seen. The patient is alert, awake, and oriented well. PSYCHIATRIC SYSTEM: The patient's mood is euthymic. No hallucinations or delusions. LABORATORY DATA AND IMAGING DATA: White count of 3.4, hemoglobin and hematocrit 9 and 27, platelet count is 103 with 63% neutrophils, MCV is 87. PT is 15, INR 1.2, PTT 34, serum bicarbonate is 14, BUN 61, creatinine 4.9, glucose is 90, calcium is 6.4, albumin is 2, total protein is 5.4, troponin I 0.43, CK-MB is 1.6. Liver enzymes within normal limits. Lipase is 12. Chest x -ray done shows no acute cardiopulmonary abnormalities. EKG done shows sinus bradycardia at 53 beats per minute. There is LBBB seen. CLINICAL IMPRESSION AND PLAN: The patient will be admitted to telemetry for likely volume overload and will be dialyzed now. I have spoken to Dr. Hamilton. The patient had 3 hours and 50 minute session on Tuesday per patient. Patient has history of squamous cell carcinoma with prior tonsillectomy and chemoradiation therapy which he finished in July. It is unclear if the patient has had regular followups. He states he is not able to bring up sputum and feels like it is stuck in his throat. He said he smoked up until his diagnosis in July. In view of this, we will obtain a CT of the neck with and without contrast prior to him getting dialyzed. We will also consult Dr. Waldemar Colunga for ENT. Patient's indeterminate troponin is likely chronic and due to end-stage renal disease. He is currently asymptomatic as to chest pain or palpitation. We will continue his aspirin, Lipitor, Coreg, Glucotrol, Protonix, sevelamer and [place] as before. I have discussed code status with the patient and he would want to be FULL CODE. His recent CT angio chest done on showed pulmonary nodules suspicious for metastatic disease and a PET scan was recommended then. It is unclear if patient has had any followups with his oncologist. Please note he has had steady weight loss and loss of appetite with current albumin around 2 due to poor nutritional intake. MTDD
--- NOTE | 2017-11-14 12:47 | CON ---
DATE OF CONSULTATION: 11/14/2017 CONSULTING PHYSICIAN: Dr. Price REASON FOR CONSULTATION: End-stage renal disease and weakness. HISTORY OF PRESENT ILLNESS: This is a 62-year-old male with history of end-stage renal disease, rece nt history of tonsillar carcinoma, status post chemo and radiation and CHF, coronary artery disease, who came to the hospital feeling bad. The patient is due for dialysis today. Nephrology is consulte d. The patient was recently discharged from the hospital with the same complaints with cardiac evalu ation. No fever or chills. No nausea or vomiting reported. PAST MEDICAL HISTORY: 1. Positive for end-stage renal disease. 2. Tonsillar cancer. 3. Congestive heart failure. 4. Coronary artery disease. 5. Hepatitis C. 6. Hypertension. 7. Hyperlipidemia. PAST SURGICAL HISTORY: Dialysis access surgery, right shoulder surgery. HOME MEDICATIONS: Apresoline, Zetia, aspirin, Lipitor, Coreg, Omnicef, glipizide, [place], Cozaar, Pro tonix, sevelamer, zolpidem. ALLERGIES: CODEINE. SOCIAL HISTORY: No smoking, alcohol or drugs. FAMILY HISTORY: Positive for diabetes. REVIEW OF SYSTEMS: The following complete review of systems was negative, unless otherwise mentioned in the HPI or below: Constitutional: Weight loss or gain, ability to conduct usual activities. Skin: Rash, itching. Eyes: Double vision, pain. ENT/Mouth: Nose bleeding, neck stiffness, pain, tenderness. Cardiovascular: Palpitations, dyspnea on exertion, orthopnea. Respiratory: Shortness of breath, wheezing, cough, hemoptysis, fever or night sweats. Gastrointestinal: Poor appetite, abdominal pain, heartburn, nausea, vomiting, constipation, or diarrhea. Genitourinary: Urgency, frequency, dysuria, nocturia. Musculoskeletal: Pain, swelling. Neurologic/Psychiatric: Anxiety, depression. Allergy/Immunologic: Skin rash, bleeding tendency. PHYSICAL EXAMINATION: GENERAL: This is a well-built male in no apparent distress. VITAL SIGNS: Temperature 97.7, pulse 54, respiratory 18, blood pressure 106/67. HEENT: Atraumatic, normocephalic. Oral mucosa is moist. NECK: Supple, no masses. CARDIOVASCULAR: S1, S2 heard. Rate and rhythm regular. RESPIRATORY: Clear. ABDOMEN: Soft. MUSCULOSKELETAL: 1+ edema. DERMATOLOGIC: No skin rash. NEUROLOGIC: Alert, awake. PSYCHIATRIC: Mood and affect normal. LABORATORY: Potassium is 4.2, BUN 61, creatinine is 4.9, hemoglobin is 9.3. ASSESSMENT AND PLAN: 1. End-stage renal disease on hemodialysis. We will continue hemodialysis Tuesday, Tuesday, and . Patient was seen during dialysis today. 2. Metabolic acidosis. Will have dialysis. 3. Hypoalbuminemia. 4. Edema, controlled. 5. Hypertension, stable 6. Anemia. Continue Epogen with dialysis. Plan is to continue on dialysis as tolerated.
[2017-11-14] MEDS ORDERED: HYDROcodone/Acetaminophen 5/325 mg Tablet PO SCH ×2 (13:15→21:00)
[2017-11-14] MEDS: Sevelamer Carbonate 800 MG TAB PO SCH ×2 (14:46→20:16)
[2017-11-14] MEDS: guaiFENesin ER 600 MG TAB PO SCH ×2 (14:47→20:17)
[2017-11-14] MEDS ORDERED: Clopidogrel Bisulfate 75 MG TAB ONE (14:51)
[2017-11-14 15:45] VITALS: BMI 24.4
--- NOTE | 2017-11-14 16:06 | CT ---
POST CONTRAST SOFT TISSUE NECK CT: History: Throat cancer. Patient receiving chemotherapy and radiation therapy. Right neck and shoulder pain. Scutum stuck in his throat. Comparison: None. Technique: Post contrast soft tissue neck CT is performed in the axial plane. Sagittal and coronal re formatted images are submitted for interpretation. FINDINGS: Visualized brain parenchyma is unremarkable. Adequate aeration of the visualized paranasal sinuses an d left mastoid air cells. Opacification of the inferior right mastoid air cells. There is mild fullness in the posterior right nasal pharynx. Patient is edentulous. No obvious masses in the oral cavity. Midline fatty roof of the tongue is preserved. Epiglottis has a normal caliber. Pre-epiglottic fat is preserved. There is retropharyngeal and prevertebral fluid, nonspecific. There is symmetric attenuation of the sternocleidomastoid muscles. Symmetric attenuation of parotid and sub mandibular glands. No evidence of lymphadenopathy by size criteria. There is mild nonspecific stranding of the neck subc utaneous fat suggesting edema. There is atherosclerosis disease involving the visualized great vessels of the neck. Significant athe rosclerotic disease in the proximal right subclavian artery. At least moderate atherosclerosis involv ing short segments of the left common carotid artery and possible moderate to severe atherosclerosis involving the left internal carotid artery, incompletely evaluated. Irregular opacification of the right lung apex and left lung apex. Areas of scarring are favored. Com parison with prior imaging performed earlier this month demonstrates stable opacification. IMPRESSION: 1. Stranding of the subcutaneous fat of the neck, due to nonspecific edema. 2. Atherosclerosis as described above. Significant stenosis of the proximal right subclavian artery a nd moderate stenosis in the left carotid artery as defined above. 3. Nonspecific retroperitoneal and prevertebral fluid. Findings may be due to treatment change. Infec tious inflammatory processes cannot be excluded. Correlate clinically. POS: SAMEER
[2017-11-14] MEDS ORDERED: Iopamidol 370 76% 100 ML VIAL ONE (16:43)
[2017-11-14] MEDS: ALPRAZolam 0.5 MG TAB PO PRN (19:26)
[2017-11-14] MEDS: Carvedilol 25 MG TAB PO SCH (20:14)
[2017-11-14] MEDS: Famotidine 20 MG TAB PO SCH (20:16)
[2017-11-14] MEDS: Atorvastatin Calcium 40 MG TAB PO SCH (20:16)
[2017-11-14] MEDS: Heparin 5,000 UNITS/ML VIAL SC SCH (20:17)
[2017-11-14] MEDS: HYDROcodone/Acetaminophen 5/325 mg Tablet PO SCH (20:17)
[2017-11-14] MEDS: Zolpidem Tartrate 5 MG TAB PO PRN (20:18)
[2017-11-14] MEDS ORDERED: guaiFENesin ER 600 MG TAB PO SCH (21:00)
[2017-11-15 05:07] LABS: Eosinophils 8 % (0-10); Lymphocytes 18 % (21-51); MDiff Complete? YES; Mean Corpuscular HGB CONC 31.4 g/dL (32.0-36.0); Mean Corpuscular Hemoglobin 28.4 pg (27.0-31.0); Mean Corpuscular Volume 90.3 fl (80.0-94.0); Mean Platelet Volume 10.6 fL (7.4-10.4); Monocytes 14 % (0-10); Neutrophil 60 % (42-75); Platelet Clumps SLIGHT; Platelet Count 98 thou/uL (130-400); RBC Distribution Width 16.6 % (11.5-14.5); Red Blood Cell (RBC) Count 3.18 mill/uL (4.70-6.10)
[2017-11-15 05:13] LABS: ALT (SGPT) 22 U/L (8-55); AST (SGOT) 28 U/L (5-34); Alkaline Phosphatase 118 U/L (40-150); Anion Gap 16 mmol/L (10-20); BUN (Urea Nitrogen) 40 mg/dL (8.4-25.7); Bilirubin, Total 0.5 mg/dL (0.2-1.2); Calc. Creatinine Clearance 17 mL/min (70-130); Carbon Dioxide 26 mmol/L (23-31); Chloride 94 mmol/L (98-107); Estimated GFR-MDRD 12; Globulin 4.8 g/dL (2.4-3.5); Glucose 74 mg/dL (80-115); Protein, Total 7.8 g/dL (5.8-8.1); Sodium 131 mmol/L (136-145)
[2017-11-15] MEDS: Sevelamer Carbonate 800 MG TAB PO SCH ×3 (08:50→17:48)
[2017-11-15] MEDS: Carvedilol 25 MG TAB PO SCH ×2 (08:51→17:48)
[2017-11-15] MEDS: guaiFENesin ER 600 MG TAB PO SCH ×2 (08:51→20:37)
[2017-11-15] MEDS: HYDROcodone/Acetaminophen 5/325 mg Tablet PO SCH (08:51)
[2017-11-15] MEDS: glipiZIDE 5 MG TAB PO SCH (08:52)
[2017-11-15] MEDS: Aspirin 81 mg Enteric Coated Tablet PO SCH (08:53)
[2017-11-15] MEDS: Aspirin 325 MG TAB PO SCH (08:53)
[2017-11-15] MEDS: Famotidine 20 MG TAB PO SCH (08:53)
[2017-11-15] MEDS: Heparin 5,000 UNITS/ML VIAL SC SCH ×2 (08:54→20:39)
[2017-11-15] MEDS ORDERED: HYDROcodone/Acetaminophen 5/325 mg Tablet PO PRN (11:15)
--- NOTE | 2017-11-15 15:20 | PRG ---
DATE OF SERVICE: 11/15/2017 SUBJECTIVE: Patient was seen and examined at bedside and overnight events noted. Patient denies any shortness of breath or chest pain or palpitation. No history of nausea or vomitin g or diarrhea or fever or chills or cramps. OBJECTIVE: GENERAL: This is a well-built male, in no apparent distress. VITAL SIGNS: Temperature 97.2, pulse 60, respiratory rate 18, blood pressure 118/76. HEENT: Atraumatic, normocephalic. Oral mucosa is moist NECK: Supple. CARDIOVASCULAR: S1 and S2 heard. Rate and rhythm regular. RESPIRATORY: Clear to auscultation. GASTROINTESTINAL: Abdomen is soft. MUSCULOSKELETAL: No tenderness. No edema. DERMATOLOGIC: No skin rash. NEUROLOGIC: Alert and awake and oriented X3, No focal neurologic deficits. Moving all the extremitie s. PSYCHIATRIC: Mood and affect normal. LABORATORY DATA: Potassium is 5.0, BUN 40, creatinine is 5.03. ASSESSMENT AND PLAN: 1. End-stage renal disease, continue on hemodialysis Tuesday, Tuesday, and Tuesday. 2. Metabolic acidosis. 3. Hypoalbuminemia. 4. Edema. 5. Hypertension. Overall, plan is to continue dialysis Tuesday, Tuesday, and Tuesday as tolerated.
--- NOTE | 2017-11-15 17:20 | PDOC.PN ---
- Subjective Encounter Start Date: 11/15/17 Encounter Start Time: 12:00 Patient is seen today, he feels fine today c/o Chronic back pain. pending ENT consult. - Objective Resuscitation Status: Resuscitation Status FULL:Full Resuscitation MAR Reviewed: Yes Vital Signs & Weight: Vital Signs (12 hours) Temp Pulse Resp BP Pulse Ox 11/15/17 14:00 97.2 F L 60 16 92 L 11/15/17 12:15 97.2 F L 60 16 118/76 92 L 11/15/17 11:54 98.3 F 61 18 120/80 99 11/15/17 08:45 97.5 F L 60 16 115/71 99 Weight Weight 169 lb 1.6 oz I&O: 11/14/17 11/15/17 11/16/17 06:59 06:59 06:59 Intake Total 240 720 Output Total 0 Balance 240 720 Result Diagrams: 11/15/17 04:21 11/15/17 04:21 Additional Labs: Accuchecks 11/15/17 11/15/17 11/15/17 16:44 11:29 06:03 POC Glucose 101 112 H 94 11/14/17 20:42 POC Glucose 147 H Radiology Reviewed by me: Yes Phys Exam - Physical Examination HEENT: PERRLA, moist MMs Neck: no nodes, no JVD Respiratory: no wheezing, no rales Cardiovascular: RRR, no significant murmur Gastrointestinal: soft, non-tender Musculoskeletal: no edema, pulses present Dx/Plan (1) Acute on chronic combined systolic and diastolic CHF (congestive heart failure) Code(s): I50.43 - ACUTE ON CHRONIC COMBINED SYSTOLIC AND DIASTOLIC HRT FAIL Status: Acute Comment: Fluid removal with HD.Compensated now (2) Anemia of renal disease Code(s): D63.1 - ANEMIA IN CHRONIC KIDNEY DISEASE Status: Chronic Comment: continue with iron replacmeent and Epogen. (3) Diabetes type 2, controlled Code(s): E11.9 - TYPE 2 DIABETES MELLITUS WITHOUT COMPLICATIONS Status: Chronic Comment: Continue Glipizide 5mg daily, ISS (4) ESRD (end stage renal disease) on dialysis Code(s): N18.6 - END STAGE RENAL DISEASE; Z99.2 - DEPENDENCE ON RENAL DIALYSIS Status: Chronic Comment: HD per Renal service (5) HTN (hypertension) Code(s): I10 - ESSENTIAL (PRIMARY) HYPERTENSION Status: Chronic Qualifiers: (6) Throat cancer Code(s): C14.0 - MALIGNANT NEOPLASM OF PHARYNX, UNSPECIFIED Status: Chronic Comment: s/p ChemoRx and XRT, no current Rx, ENT to see, as patient was c/o throat swelling, CT neck normal. - Plan cont current plan of care, PT/OT, perinatal social worker, speech therapy, respiratory therapy, incentive spirometry, out of bed/ambulate, DVT proph w/lovenox * . - Discharge Day Encounter end time: 12:35 Review of Systems - Review of Systems ENT: Throat Pain, Throat Swelling Respiratory: negative: Cough, Dry, Shortness of Breath, Hemoptysis, SOB with Excertion, Pleuritic Pain, Sputum, Wheezing Cardiovascular: negative: chest pain, palpitations, orthopnea, paroxysmal nocturnal dyspnea, edema, light headedness, other Gastrointestinal: negative: Nausea, Vomiting, Abdominal Pain, Diarrhea, Constipation, Melena, Hematochezia, Other Genitourinary: negative: Dysuria, Frequency, Incontinence, Hematuria, Retention , Other Musculoskeletal: negative: Neck Pain, Shoulder Pain, Arm Pain, Back Pain, Hand Pain, Leg Pain, Foot Pain, Other - Medications/Allergies Allergies/Adverse Reactions: Allergies Allergy/AdvReac Type Severity Reaction Status Date / Time codeine Allergy Intermediate MADE PT Verified 11/05/17 00:50 VERY SICK TO STOMACH, NAUSEA Medications: Current Medications Acetaminophen (Tylenol) 650 mg PO Q4H PRN PRN Reason: Headache/Fever or Pain Hydrocodone Bitart/Acetaminophen ([place] 5/325) 2 tab PO Q6H PRN PRN Reason: Pain Alprazolam (Xanax) 0.5 mg PO BID PRN PRN Reason: Anxiety Last Admin: 11/14/17 19:26 Dose: 0.5 mg Aspirin (Ecotrin) 81 mg PO DAILY [facility] Last Admin: 11/15/17 08:53 Dose: 81 mg Atorvastatin Calcium (Lipitor) 80 mg PO HS [facility] Last Admin: 11/14/17 20:16 Dose: 80 mg Bismuth Subsalicylate (Pepto Bismol) 2 tab PO Q1H PRN PRN Reason: Diarrhea/Loose Stools Carvedilol (Coreg) 25 mg PO BID-[facility] Last Admin: 11/15/17 08:51 Dose: 25 mg Dextrose/Water (Dextrose 50%) 25 gm SLOW IVP PRN PRN PRN Reason: Hypoglycemia Epoetin Christiano (Procrit) 10,000 units IVP MoWeFr@0900 [facility] Glipizide (Glucotrol) 5 mg PO DAILY [facility] Last Admin: 11/15/17 08:52 Dose: 5 mg Glucagon (Glucagon) 1 mg IM PRN PRN PRN Reason: Hypoglycemia Guaifenesin (Mucinex) 600 mg PO Q12HR [facility] Last Admin: 11/15/17 08:51 Dose: 600 mg Guaifenesin/Dextromethorphan (Robitussin Dm) 15 ml PO Q4H PRN PRN Reason: Cough Heparin Sodium (Porcine) (Heparin) 5,000 units SC BID [facility] Last Admin: 11/15/17 08:54 Dose: 5,000 units Dextrose/Water (D5w) 1,000 mls @ 0 mls/hr IV .Q0M PRN; As Directed PRN Reason: Hypoglycemia Insulin Human Lispro (Humalog) 0 units SC .MILD SLIDING SCALE PRN PRN Reason: Mild Correctional Scale Insulin Human Lispro (Humalog) 0 units SC .BEDTIME SLIDING SC PRN PRN Reason: Bedtime Correctional Scale Nitroglycerin (Nitrostat) 0.4 mg SL Q5MIN PRN PRN Reason: Chest Pain Pantoprazole Sodium (Protonix) 40 mg PO BID [facility] Last Admin: 11/15/17 08:52 Dose: 40 mg Senna (Senokot) 2 tab PO HSPRN PRN PRN Reason: Constipation Last Admin: 11/14/17 19:26 Dose: 2 tab Sevelamer Carbonate (Renvela) 2,400 mg PO TID-WM [facility] Last Admin: 11/15/17 12:10 Dose: 2,400 mg Sodium Chloride (Flush - Normal Saline) 10 ml IVF Q12HR [facility] Last Admin: 11/15/17 08:54 Dose: 10 ml Sodium Chloride (Flush - Normal Saline) 10 ml IVF PRN PRN PRN Reason: Saline Flush Zolpidem Tartrate (Ambien) 5 mg PO HS PRN PRN Reason: Insomnia Last Admin: 11/14/17 20:18 Dose: 5 mg
[2017-11-15] MEDS: HYDROcodone/Acetaminophen 5/325 mg Tablet PO PRN (17:56)
[2017-11-15] MEDS: Atorvastatin Calcium 40 MG TAB PO SCH (20:37)
[2017-11-16] MEDS: Zolpidem Tartrate 5 MG TAB PO PRN ×2 (00:12→20:29)
[2017-11-16 05:20] LABS: Hemoglobin 8.6 g/dL (14.0-18.0); Platelet Count 123 thou/uL (130-400)
[2017-11-16] MEDS: guaiFENesin ER 600 MG TAB PO SCH ×2 (08:28→20:30)
[2017-11-16] MEDS: Sevelamer Carbonate 800 MG TAB PO SCH ×3 (08:29→17:14)
[2017-11-16] MEDS: Aspirin 81 mg Enteric Coated Tablet PO SCH (08:29)
[2017-11-16] MEDS: glipiZIDE 5 MG TAB PO SCH (08:29)
[2017-11-16] MEDS: HYDROcodone/Acetaminophen 5/325 mg Tablet PO PRN (08:30)
[2017-11-16] MEDS ORDERED: Epoetin (NON-ESRD) 20,000 UNITS/ML ML IVP SCH (09:00)
[2017-11-16] MEDS: Carvedilol 25 MG TAB PO SCH ×2 (14:19→17:14)
[2017-11-16] MEDS: Heparin 5,000 UNITS/ML VIAL SC SCH ×2 (14:19→20:32)
--- NOTE | 2017-11-16 15:39 | PDOC.PN ---
- Subjective Encounter Start Date: 11/16/17 Encounter Start Time: 13:00 Patient is seen today at HD, stable, Discuassed with Dr. Colunga on phone regarding his Neck laryngoscopy was normal. - Objective Resuscitation Status: Resuscitation Status FULL:Full Resuscitation MAR Reviewed: Yes Vital Signs & Weight: Vital Signs (12 hours) Temp Pulse Resp BP BP Pulse Ox 11/16/17 14:38 98.1 F 60 20 130/86 96 11/16/17 08:00 97.9 F 60 18 91 L 11/16/17 04:32 97.9 F 60 18 128/86 97 Weight Weight 169 lb 1.6 oz I&O: 11/15/17 11/16/17 11/17/17 06:59 06:59 06:59 Intake Total 240 800 Output Total 0 Balance 240 800 Result Diagrams: 11/16/17 05:10 11/15/17 04:21 Additional Labs: Accuchecks 11/16/17 11/15/17 11/15/17 04:29 19:53 16:44 POC Glucose 92 108 101 Radiology Reviewed by me: Yes Phys Exam - Physical Examination HEENT: PERRLA, moist MMs Neck: no nodes, no JVD Respiratory: no wheezing, no rales Cardiovascular: RRR, no significant murmur Gastrointestinal: soft, non-tender Musculoskeletal: no edema, pulses present Neurological: non-focal, normal sensation Dx/Plan (1) Acute on chronic combined systolic and diastolic CHF (congestive heart failure) Code(s): I50.43 - ACUTE ON CHRONIC COMBINED SYSTOLIC AND DIASTOLIC HRT FAIL Status: Acute Comment: Fluid removal with HD.Compensated now (2) Anemia of renal disease Code(s): D63.1 - ANEMIA IN CHRONIC KIDNEY DISEASE Status: Chronic Comment: continue with iron replacmeent and Epogen. (3) Diabetes type 2, controlled Code(s): E11.9 - TYPE 2 DIABETES MELLITUS WITHOUT COMPLICATIONS Status: Chronic Comment: Continue Glipizide 5mg daily, ISS (4) ESRD (end stage renal disease) on dialysis Code(s): N18.6 - END STAGE RENAL DISEASE; Z99.2 - DEPENDENCE ON RENAL DIALYSIS Status: Chronic Comment: HD per Renal service (5) HTN (hypertension) Code(s): I10 - ESSENTIAL (PRIMARY) HYPERTENSION Status: Chronic Qualifiers: (6) Throat cancer Code(s): C14.0 - MALIGNANT NEOPLASM OF PHARYNX, UNSPECIFIED Status: Chronic Comment: ruled out, laryngoscope did not show any invasion of vacal cords, recommeded by ENT to follow up with Dr. Pineda. - Plan cont current plan of care, PT/OT, nursing home social worker, speech therapy, respiratory therapy, incentive spirometry, out of bed/ambulate, DVT proph w/lovenox * . - Discharge Day Encounter end time: 12:35 Review of Systems - Review of Systems Eyes: negative: Pain, Vision Change, Conjunctivae Inflammation, Eyelid Inflammation, Redness, Other ENT: negative: Ear Pain, Ear Discharge, Nose Pain, Nose Discharge, Nose Congestion, Mouth Pain, Mouth Swelling, Throat Pain, Throat Swelling, Other Cardiovascular: negative: chest pain, palpitations, orthopnea, paroxysmal nocturnal dyspnea, edema, light headedness, other Gastrointestinal: negative: Nausea, Vomiting, Abdominal Pain, Diarrhea, Constipation, Melena, Hematochezia, Other Musculoskeletal: negative: Neck Pain, Shoulder Pain, Arm Pain, Back Pain, Hand Pain, Leg Pain, Foot Pain, Other Skin: negative: Rash, Lesions, Pedro, Bruising, Other - Medications/Allergies Allergies/Adverse Reactions: Allergies Allergy/AdvReac Type Severity Reaction Status Date / Time codeine Allergy Intermediate MADE PT Verified 11/05/17 00:50 VERY SICK TO STOMACH, NAUSEA Medications: Current Medications Acetaminophen (Tylenol) 650 mg PO Q4H PRN PRN Reason: Headache/Fever or Pain Hydrocodone Bitart/Acetaminophen ([place] 5/325) 2 tab PO Q6H PRN PRN Reason: Pain Last Admin: 11/16/17 08:30 Dose: 2 tab Alprazolam (Xanax) 0.5 mg PO BID PRN PRN Reason: Anxiety Last Admin: 11/14/17 19:26 Dose: 0.5 mg Aspirin (Ecotrin) 81 mg PO DAILY [facility] Last Admin: 11/16/17 08:29 Dose: 81 mg Atorvastatin Calcium (Lipitor) 80 mg PO HS [facility] Last Admin: 11/15/17 20:37 Dose: 80 mg Bismuth Subsalicylate (Pepto Bismol) 2 tab PO Q1H PRN PRN Reason: Diarrhea/Loose Stools Carvedilol (Coreg) 25 mg PO BID-[facility] Last Admin: 11/16/17 14:19 Dose: Not Given Dextrose/Water (Dextrose 50%) 25 gm SLOW IVP PRN PRN PRN Reason: Hypoglycemia Epoetin Christiano (Procrit) 10,000 units IVP MoWeFr@0900 [facility] Last Admin: 11/16/17 11:42 Dose: 10,000 units Glipizide (Glucotrol) 5 mg PO DAILY [facility] Last Admin: 11/16/17 08:29 Dose: 5 mg Glucagon (Glucagon) 1 mg IM PRN PRN PRN Reason: Hypoglycemia Guaifenesin (Mucinex) 600 mg PO Q12HR [facility] Last Admin: 11/16/17 08:28 Dose: 600 mg Guaifenesin/Dextromethorphan (Robitussin Dm) 15 ml PO Q4H PRN PRN Reason: Cough Heparin Sodium (Porcine) (Heparin) 5,000 units SC BID [facility] Last Admin: 11/16/17 14:19 Dose: Not Given Dextrose/Water (D5w) 1,000 mls @ 0 mls/hr IV .Q0M PRN; As Directed PRN Reason: Hypoglycemia Insulin Human Lispro (Humalog) 0 units SC .MILD SLIDING SCALE PRN PRN Reason: Mild Correctional Scale Insulin Human Lispro (Humalog) 0 units SC .BEDTIME SLIDING SC PRN PRN Reason: Bedtime Correctional Scale Nitroglycerin (Nitrostat) 0.4 mg SL Q5MIN PRN PRN Reason: Chest Pain Pantoprazole Sodium (Protonix) 40 mg PO BID [facility] Last Admin: 11/16/17 08:29 Dose: 40 mg Senna (Senokot) 2 tab PO HSPRN PRN PRN Reason: Constipation Last Admin: 11/14/17 19:26 Dose: 2 tab Sevelamer Carbonate (Renvela) 2,400 mg PO TID-WM [facility] Last Admin: 11/16/17 14:19 Dose: Not Given Sodium Chloride (Flush - Normal Saline) 10 ml IVF Q12HR [facility] Last Admin: 11/16/17 14:19 Dose: 10 ml Sodium Chloride (Flush - Normal Saline) 10 ml IVF PRN PRN PRN Reason: Saline Flush Zolpidem Tartrate (Ambien) 5 mg PO HS PRN PRN Reason: Insomnia Last Admin: 11/16/17 00:12 Dose: 5 mg
--- NOTE | 2017-11-16 18:02 | PRG ---
DATE OF SERVICE: 11/16/2017 SUBJECTIVE: Patient was seen and examined at bedside and overnight events noted. Patient denies any shortness of breath or chest pain or palpitation. No history of nausea or vomiting or diarrhea or f ever or chills or cramps. OBJECTIVE: General: This is a well-built male in no apparent distress. Vital Signs: Temperature 91, pulse 60, respiratory rate 18, and blood pressure 130/86. HEENT: Atraumatic, normocephalic, Oral mucosa is moist. Neck: Supple. Cardiovascular: S1 and S2 heard. Rate and rhythm regular. Respiratory: Clear to auscultation. Gastrointestinal: Abdomen is soft. Musculoskeletal: No tenderness. No edema. Dermatologic: No skin rash. Neurologic: Alert and awake and oriented X3. No focal neurologic deficits. Moving all the extremitie s. Psychiatric: Mood and affect normal. LABORATORY DATA: No labs done today. ASSESSMENT AND PLAN: 1. End-stage renal disease, continue on hemodialysis Tuesday, Tuesday, and Tuesday. 2. Acidosis. 3. Edema. 4. Hypertension. 5. Anemia. 6. Plan is to continue on dialysis as tolerated.
[2017-11-16] MEDS: Atorvastatin Calcium 40 MG TAB PO SCH (20:28)
[2017-11-16] MEDS: ALPRAZolam 0.5 MG TAB PO PRN (20:31)
[2017-11-17] MEDS: Sevelamer Carbonate 800 MG TAB PO SCH ×2 (08:03→12:24)
[2017-11-17] MEDS: guaiFENesin ER 600 MG TAB PO SCH (08:03)
[2017-11-17] MEDS: Carvedilol 25 MG TAB PO SCH (08:03)
[2017-11-17] MEDS: glipiZIDE 5 MG TAB PO SCH (08:03)
[2017-11-17] MEDS: Heparin 5,000 UNITS/ML VIAL SC SCH (08:04)
[2017-11-17] MEDS: Aspirin 81 mg Enteric Coated Tablet PO SCH (08:04)
[2017-11-17 11:54] VITALS: TEMP 97.9
[2017-11-17 14:07] VITALS: BP 123/81
--- NOTE | 2017-11-17 18:10 | PRG ---
DATE OF SERVICE: 11/17/2017 SUBJECTIVE: Patient was seen and examined at bedside and overnight events noted. Patient denies any shortness of breath or chest pain or palpitation. No history of nausea or vomiting or diarrhea or f ever or chills or cramps. OBJECTIVE: GENERAL: This is a well-built male, in no apparent distress. VITAL SIGNS: Temperature 97.9, pulse 64, respiratory rate 16, blood pressure 120/68. HEENT: Atraumatic, normocephalic, oral mucosa is moist. NECK: Supple. CARDIOVASCULAR: S1, S2 heard, rate and rhythm regular. RESPIRATORY: Clear to auscultation. GASTROINTESTINAL: Abdomen is soft. MUSCULOSKELETAL: No tenderness, no edema. DERMATOLOGIC: No skin rash. NEUROLOGIC: Alert and awake and oriented x3. No focal neurologic deficits. Moving all the extremit ies. PSYCHIATRIC: Mood and affect normal. LABORATORY DATA: Not done today. ASSESSMENT AND PLAN: 1. End-stage renal disease. Continue on dialysis Tuesday, Tuesday and Tuesday. 2. Edema, controlled. 3. Hypertension. 4. Anemia. Continue on dialysis Tuesday, Tuesday, and Tuesday.
--- NOTE | 2017-11-18 13:05 | DIS ---
DATE OF ADMISSION: 11/14/2017 DATE OF DISCHARGE: 11/17/2017 ADMITTING DIAGNOSIS: Generalized weakness. DISCHARGE DIAGNOSIS: Generalized weakness. SECONDARY DIAGNOSES: 1. Throat congestion. 2. 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 3. End-stage renal disease on hemodialysis. 4. History of congestive heart failure. 5. History of chronic hepatitis C. 6. History of hypertension. 7. History of chronic anemia. 8. History of cerebrovascular accident. CONSULTANTS INVOLVED IN THE CARE: 1. ENT, Dr. Waldemar Colunga. 2. Nephrology, Dr. Hamilton. HISTORY OF PRESENT ILLNESS AND HOSPITAL COURSE: In brief, this is a 62-year-old white male with know n history of squamous cell cancer status post chemo and radiation therapy and patient's recent CT jordan wed evidence of possible extension to the pulmonary nodules, cancer extending to the lungs with recom mendation for a PET scan. Patient follows with his oncologist who has an appointment in few days and because of the worsening congestion in his throat and suspicion for regrowth of the cancer, the juan carlos ent is admitted for further evaluation. During this admission, patient was seen by ENT and did a lar yngoscopy. It did not show any evidence of vocal cord invasion. The patient had a swallow study, wh ich was recommended as modified diet for him. Patient continues with hemodialysis and his condition had improved, but patient continues to complain of generalized weakness, which most likely could be r elated to end-stage renal disease and anemia. The patient was discharged home after monitoring for 1 or 2 days. The patient was stable. PHYSICAL EXAMINATION: VITAL SIGNS: On the day of discharge, blood pressure 123/81, heart rate of 65, respiration of 16, sa turating 97%. GENERAL: The patient is moderately built and moderately nourished, does not appears to be in acute d istress. CARDIOVASCULAR: S1, S2 normal. No murmurs, rubs or gallops. LUNGS: Bilateral air entry was equal. MUSCULOSKELETAL: No calf tenderness. No pedal edema. No joint tenderness, no joint swelling. DISCHARGE MEDICATIONS: Losartan 25 mg p.o. b.i.d., alprazolam 0.5 mg p.o. b.i.d., aspirin 81 mg p.o. daily, atorvastatin 80 mg p.o. daily, carvedilol 25 mg p.o. b.i.d., glipizide 5 mg p.o. daily, panto prazole 40 mg p.o. b.i.d., sevelamer 2400 mg p.o. t.i.d., zolpidem 5 mg p.o. at bedtime. DISCHARGE INSTRUCTIONS: Continue activity as tolerated and continue with hemodialysis as per the [facility]. Advised to follow up with , his own oncologist, for further evaluation of the pulmon nahum nodules. I spent 35 minutes on this patient.
== END 2017-11-17 14:27 | disposition home or self-care (01) | DRG 291 ==
LOC: ERS 03:52 → ERHOLD 04:43 → 2NO 13:29 → T4-B 11-15 12:41
PROVIDERS: ADMIT Internal Medicine; ATTEND Internal Medicine
PROC: 5A1D70Z Performance of Urinary Filtration, Intermittent, Less than 6 Hours Per Day (ICD-10-PCS; principal; 2017-11-14)
PROC: 5A1D70Z Performance of Urinary Filtration, Intermittent, Less than 6 Hours Per Day (ICD-10-PCS; 2017-11-14)
DX: I13.2 Hypertensive heart and chronic kidney disease with heart failure and with stage 5 chronic kidney disease, or end stage renal disease (principal); I50.43 Acute on chronic combined systolic (congestive) and diastolic (congestive) heart failure; E11.22 Type 2 diabetes mellitus with diabetic chronic kidney disease; E87.2 Acidosis; N18.6 End stage renal disease; J04.10 Acute tracheitis without obstruction; R06.02 Shortness of breath; B18.2 Chronic viral hepatitis C; I25.10 Atherosclerotic heart disease of native coronary artery without angina pectoris; Z85.89 Personal history of malignant neoplasm of other organs and systems; Z92.21 Personal history of antineoplastic chemotherapy; Z92.3 Personal history of irradiation; Z95.5 Presence of coronary angioplasty implant and graft; E78.5 Hyperlipidemia, unspecified; Z86.73 Personal history of transient ischemic attack (TIA), and cerebral infarction without residual deficits; F41.9 Anxiety disorder, unspecified; F32.9 Major depressive disorder, single episode, unspecified; Z88.5 Allergy status to narcotic agent; Z87.891 Personal history of nicotine dependence; Z79.84 Long term (current) use of oral hypoglycemic drugs; Z79.82 Long term (current) use of aspirin; I44.7 Left bundle-branch block, unspecified; D63.1 Anemia in chronic kidney disease; R53.1 Weakness; Z99.2 Dependence on renal dialysis
CPT/HCPCS: 36415; 36416; 70491; 80053; 85014; 85018; 85025; 85049; 90935; 93306; 96365; 96376; A4216; G0257; G8978-GP-CK; G8979-GP-CJ; J0885; J1644

== ENCOUNTER 2018-02-02 11:10 | Outpatient (CLI) | payer MEDICARE ==
--- NOTE | 2018-02-02 15:57 | NM ---
BONE SCAN: HISTORY: Head and neck cancer. FINDINGS: Examination is performed using 28 mCi 99m Technetium MDP administered intravenously. Whole body imag ing shows a normal distribution of radiopharmaceutical. Bilateral renal as well as bladder activity is noted. IMPRESSION: No evidence of metastatic disease. POS: [facility]
== END 2018-02-02 11:11 | disposition home or self-care (01) ==
LOC: NM 11:10
PROVIDERS: ATTEND Internal Medicine Hematology & Oncology
DX: C76.0 Malignant neoplasm of head, face and neck (principal)
CPT/HCPCS: 78306; A9503

== ENCOUNTER 2018-04-28 14:15 | Outpatient (CLI) | payer MEDICARE | END 2018-04-28 14:16 | disposition home or self-care (01) | LOC: BICULT 14:15 | PROVIDERS: ATTEND Family Medicine | DX: R22.31 Localized swelling, mass and lump, right upper limb (principal) | CPT/HCPCS: 76882 ==